=== PATIENT | female | born 1950 | race Caucasian/White ===

== ENCOUNTER 2021-09-21 19:04 | Inpatient (IN) | payer MEDICARE, OTHER ==
[~2021-09-21] VITALS: Ht 165.1 cm; Wt 68.0 kg
--- NOTE | 2021-09-21 19:11 | PHYS DOC ---
General Adult EDM: Chief Complaint: PSYCH EVALUATION HPI: HPI: Patient is a 71-year-old female that is brought in for medical clearance to go to the geriatric psychiatric facility here. She was brought in by one of the caregivers from her senior care facility. The patient has no complaints. She has a known history of psychosis. She has already been preauthorized to be admitted once medically cleared through the ED. No reported vomiting. No reported fever. No reported chest pain, cough, dyspnea. No reported abdominal pain. No reported injury, fall or traumas. Review of Systems: Review of Systems: As per HPI Physical Exam: PE: Constitutional: Well developed, well nourished, no acute distress, non-toxic appearance. [] HENT: Normocephalic, atraumatic, oropharynx is patent and clear. Mucous members are moist Eyes: Sclera anicteric, conjunctive are normal, PERRL, EOMI Neck: Normal range of motion, no tenderness, supple, no stridor. No meningismus. Cardiovascular:Heart rate regular rhythm, +2 radial and +2 PT pulses bilaterally. Lungs & Thorax: Bilateral breath sounds clear to auscultation, no R/R/W, no dis tress. Abdomen: Bowel sounds normal, soft, no tenderness, no masses, no pulsatile masses. No CVA tenderness. Skin: Warm, dry, no erythema, no rash. [] Back: No tenderness, no CVA tenderness. [] Extremities: No tenderness, no cyanosis, no clubbing, ROM intact, no edema. No calf tenderness. Neurologic: Alert and oriented X 3, normal motor function, normal sensory function, no focal deficits noted. [] Psychologic: Affect is somewhat bizarre, she is overall cooperative. She is not aggressive or hostile. She does not appear to be responding to internal stimuli. EKG: EKG: [] Radiology/Procedures: Radiology/Procedures: IMAGING REPORT Signed PATIENT: JACLYN HEDRICK ACCOUNT: [id number] : 1950 LOCATION: ER AGE: 71 SEX: F EXAM STATUS: REG ER ORD. PHYSICIAN: GERMAIN WOOTEN DO REASON: increased agitation PROCEDURE: CT HEAD WO CONTRAST Exam: CT head INDICATION: Increased agitation TECHNIQUE: Sequential axial images through the head were obtained without the administration of IV contrast. Exposure: One or more of the following in the visualized dose reduction techniques were utilized for this examination: 1. Automated exposure control 2. Adjustment of the MA and/or KV according to patient size 3. Use of iterative of reconstructive technique Comparisons: None FINDINGS: No focal parenchymal lesion or hemorrhage is identified. There is no midline shift or sulcal effacement. Mild patchy hypodensity in the periventricular white matter. No acute vascular territory infarction is identified. Hightower-white distinction is preserved. The ventricular system is within normal limits without compression hydrocephalus. The basal cisterns are well maintained. The visualized portions of the paranasal sinuses and mastoid air cells are well- pneumatized. No acute fractures. IMPRESSION: Mild small vessel ischemic change, technically age indeterminate without recent prior imaging. Electronically signed by: Kary Grey MD (09/21/2021 8:27 PM) [facility] DICTATED AND SIGNED BY: KARY GREY MD DATE: 09/21/212024 CC: GERMAIN WOOTEN DO; NAVI PALMER ~ Heart Score: C/O Chest Pain: No Risk Factors: Risk Factors: DM, Current or recent (<one month) smoker, HTN, HLP, family history of CAD, obesity. Risk Scores: Score 0 - 3: 2.5% MACE over next 6 weeks - Discharge Home Score 4 - 6: 20.3% MACE over next 6 weeks - Admit for Clinical Observation Score 7 - 10: 72.7% MACE over next 6 weeks - Early Invasive Strategies Course & Med Decision Making: Course & Med Decision Making Pertinent Labs and Imaging studies reviewed. (See chart for details) I discussed the findings, differential diagnosis and plan of care with the patient and her caregiver. She does have findings of a urinary tract infection. First dose of oral cephalexin is given here. The patient will be admitted to the geriatric psychiatric facility. Here. I spoke with Dr. Arthur and Dr. Urbina regarding the emergency department work-up, the patient appears stable for admission. They agree, the patient is admitted without incident. Dragon Disclaimer: Dragon Disclaimer: This electronic medical record was generated, in whole or in part, using a voice recognition dictation system. Departure Departure: Impression: Primary Impression: Psychosis Qualified Codes: F25.9 - Schizoaffective disorder, unspecified Additional Impression: Urinary tract infection Qualified Codes: N39.0 - Urinary tract infection, site not specified Disposition: 09 ADMITTED INPATIENT Admitting Physician: Other (Dr. Urbina, geriatric psych and Dr. Arthur) Condition: STABLE Referrals: NAVI PALMER (PCP) GERMAIN WOOTEN DO September 21, 2021 19:11
[2021-09-21 20:10] LABS: BASO % 0 % (0-3); EOS % 0 % (0-3); HEMATOCRIT 39.3 % (36.0-47.0); HEMOGLOBIN 12.6 g/dL (12.0-15.5); LYMPH # 2.8 x10^3/uL (1.0-4.8); LYMPH % 35 % (24-48); MEAN CORPUSCULAR HEMOGLOBIN 27 pg (25-35); MEAN CORPUSCULAR HGB CONC 32 g/dL (31-37); MEAN CORPUSCULAR VOLUME 86 fL (79-100); MONO # 0.7 x10^3/uL (0.0-1.1); MONO % 9 % (0-9); NEUT # 4.4 x10^3uL (1.8-7.7); NEUT % 56 % (31-73); PLATELET COUNT 166 x10^3/uL (140-400); RED BLOOD COUNT 4.58 x10^6/uL (3.50-5.40); RED CELL DISTRIBUTION WIDTH 16.8 % (11.5-14.5); WHITE BLOOD COUNT 7.9 x10^3/uL (4.0-11.0)
[2021-09-21 20:23] LABS: ACETAMIN < 2.0 mcg/mL (10-30); CALCIUM 9.2 mg/dL (8.5-10.1); CREATININE 0.9 mg/dL (0.6-1.0); GFR 62.1; POTASSIUM 4.1 mmol/L (3.5-5.1)
[2021-09-21 20:24] LABS: ETHANOL < 10 mg/dL (0-10); SALIC < 2.8 mg/dL (2.8-20.0)
[2021-09-21 20:29] LABS: ALBUMIN 3.1 g/dL (3.4-5.0); TOTAL BILIRUBIN 0.3 mg/dL (0.2-1.0); TOTAL PROTEIN 6.3 g/dL (6.4-8.2)
--- NOTE | 2021-09-21 20:30 | RAD ---
Exam: CT head INDICATION: Increased agitation TECHNIQUE: Sequential axial images through the head were obtained without the administration of IV co ntrast. Exposure: One or more of the following in the visualized dose reduction techniques were utilized for this examination: 1. Automated exposure control 2. Adjustment of the MA and/or KV according to patient size 3. Use of iterative of reconstructive technique Comparisons: None FINDINGS: No focal parenchymal lesion or hemorrhage is identified. There is no midline shift or sulcal effaceme nt. Mild patchy hypodensity in the periventricular white matter. No acute vascular territory infarction i s identified. Hightower-white distinction is preserved. The ventricular system is within normal limits without compression hydrocephalus. The basal cisterns are well maintained. The visualized portions of the paranasal sinuses and mastoid air cells are well-pneumatized. No acute fractures. IMPRESSION: Mild small vessel ischemic change, technically age indeterminate without recent prior imaging. Electronically signed by: Kary Lewis MD (09/21/2021 8:27 PM) [facility]
[2021-09-21 20:41] LABS: CLARITY,URINE CLEAR; COLOR,URINE YELLOW; GLUCOSE,URINE NEG (NEG); NITRITE,URINE NEG (NEG); UROBILINOGEN,URINE 0.2 mg/dL (0.2 mg/dL)
[2021-09-21 20:42] LABS: BACTERIA,URINE MANY /HPF (0-FEW); RBC,URINE 0 /HPF (0-2); SQUAMOUS EPITHELIAL CELL,UR FEW /LPF
[2021-09-21 20:44] LABS: BARBITURATES NEG (NEG); BENZODIAZEPINES NEG (NEG); CANNABINOIDS NEG (NEG); METHADONE NEG (NEG); OPIATES NEG (NEG); PHENCYCLIDINE NEG (NEG)
[2021-09-21 20:47] LABS: INFLUENZA A PATIENT NEGATIVE (NEGATIVE); INFLUENZA B PATIENT NEGATIVE (NEGATIVE)
[2021-09-21] MEDS ORDERED: TRAZ-125 PO (20:52)
[2021-09-21] MEDS ORDERED: NITR0.4T22 SL (20:52)
[2021-09-21] MEDS ORDERED: MELA3TAB4 PO (20:52)
[2021-09-21] MEDS ORDERED: MAG-115 PO (20:52)
[2021-09-21] MEDS ORDERED: OLAN10TA69 PO (20:52)
[2021-09-21] MEDS ORDERED: LORA0.5T21 PO (20:52)
[2021-09-21] MEDS ORDERED: SERT50TA PO (20:52)
[2021-09-21] MEDS ORDERED: SODI30SP NS (20:52)
[2021-09-21] MEDS ORDERED: GUAI600T47 PO (20:52)
[2021-09-21] MEDS ORDERED: QUET400T52 PO (20:52)
[2021-09-21] MEDS ORDERED: NYST15PO9 TP (20:52)
[2021-09-21] MEDS ORDERED: OMEP20CA16 PO (20:52)
[2021-09-21] MEDS ORDERED: ASPI-889 PO (20:52)
[2021-09-21] MEDS ORDERED: CLOZ100T7 PO ×2 (20:52)
[2021-09-21] MEDS ORDERED: ACET325T21 PO (20:52)
[2021-09-21] MEDS ORDERED: ALBU2.5V8 IH (20:52)
[2021-09-21] MEDS ORDERED: MAGN24003 PO (20:52)
[2021-09-21] MEDS ORDERED: ATOR20TA58 PO (20:52)
[2021-09-21] MEDS ORDERED: DOCU100C28 PO (20:52)
[2021-09-21] MEDS ORDERED: IBUP-571 PO (20:52)
[2021-09-21] MEDS ORDERED: POLY2500 PO (20:52)
[2021-09-21] MEDS ORDERED: OMEG1CAP50 PO (20:52)
[2021-09-21 21:04] LABS: COCAINE NEG (NEG)
[2021-09-21 21:07] LABS: AMPHETAMINE/METHAMPHETAMINE NEG (NEG)
[2021-09-21] MEDS ORDERED: METHYL SALICYLATE/MENTHOL TOPICAL OINTMENT 57GM TUBE. TP PRN (21:15)
[2021-09-21] MEDS ORDERED: MAG HYDROX/AL HYDROX/SIMETH 30 ML ORAL.SUSP PO PRN (21:15)
[2021-09-21] MEDS ORDERED: ACETAMINOPHEN 325 MG TABLET PO PRN (21:15)
[2021-09-21] MEDS ORDERED: CEPHALEXIN 250 MG CAPSULE PO ONE (21:30)
[2021-09-21 23:56] VITALS: BP 131/71
[2021-09-22] MEDS ORDERED: NYSTATIN TOPICAL POWDER 15GM BOTTLE. TP PRN (00:15)
[2021-09-22] MEDS ORDERED: NITROGLYCERIN SUBLINGUAL 0.4 MG BOTTLE OF 25. SL PRN (00:15)
[2021-09-22] MEDS ORDERED: IBUPROFEN 600 MG TABLET. PO PRN (00:15)
[2021-09-22] MEDS ORDERED: QUETIAPINE FUMARATE 400 MG PO SCH (00:15)
[2021-09-22] MEDS ORDERED: LORazepam 0.5 MG TABLET PO PRN (00:15)
[2021-09-22 06:04] VITALS: BP 138/84
[2021-09-22] MEDS: SODIUM CHLORIDE 0.65% NASAL SPRAY 45ML BOTTLE. NS SCH ×2 (09:00→21:25)
[2021-09-22] MEDS: POLYETHYLENE GLYCOL 3350 17 GM PACKET. PO SCH (09:00)
[2021-09-22] MEDS: ALBUTEROL SULFATE 8GM INHALER. INH SCH ×2 (09:00→21:26)
[2021-09-22] MEDS: ASPIRIN ENTERIC COATED 81 MG TABLET.DR. PO SCH (09:06)
[2021-09-22] MEDS: CEPHALEXIN 250 MG CAPSULE PO SCH ×2 (09:06→21:23)
[2021-09-22] MEDS: DOCUSATE SODIUM 100 MG CAPSULE PO SCH (09:06)
[2021-09-22] MEDS: PANTOPRAZOLE 40 MG TABLET. PO SCH (09:06)
[2021-09-22] MEDS: OMEGA-3 FATTY ACIDS/FISH OIL 1,000 MG CAPSULE. PO SCH ×2 (09:07→21:23)
[2021-09-22] MEDS: cloZAPine 100 MG TABLET PO SCH ×2 (12:20→21:25)
[2021-09-22 15:00] VITALS: BP 93/51
--- NOTE | 2021-09-22 18:57 | EKG ---
[address] [address] Test Date: 2021-09-22 Test Time: 06:43:40 Pat Name: JACLYN HEDRICK Department: Room: [address] [place] [address] Gender: F Trimmer Meat: : 1950 Requested By: KAYLEE CAMEJO Order Number: [id number] Reading MD: Nghia Salas MD Measurements Intervals [place] Rate: 89 P: 19 ND: 316 QRS: 64 QRSD: 84 T: 42 QT: 344 QTc: 420 Interpretive Statements SINUS RHYTHM PROLONGED ND INTERVAL ANTEROSEPTAL INFARCT Electronically Signed On 09-25-2021 9:02:24 CDT by Nghia Salas MD
[2021-09-22 19:36] LABS: CHOLESTEROL/HDL RATIO 2.8
[2021-09-22 19:37] LABS: THYROID STIM HORMONE (TSH) 2.038 uIU/mL (0.358-3.740)
[2021-09-22 20:19] LABS: THYROXINE 4.7 ug/dL (4.5-12.0)
[2021-09-22] MEDS: traZODone 100 MG TABLET. PO SCH (21:23)
[2021-09-22] MEDS: ATORVASTATIN CALCIUM 20 MG TABLET PO SCH (21:23)
[2021-09-22] MEDS: SERTRALINE 50 MG TABLET. PO SCH (21:24)
[2021-09-22] MEDS: MELATONIN 3 MG TABLET PO SCH (21:24)
--- NOTE | 2021-09-22 21:47 | PDOC ---
Exam Note: Toni Note: Please also refer to the separate dictated note~for this date of service dictated separately.~Patient seen individually. Discussed the patient with Nursing staff reviewed the chart.~Reviewed interim history and current functioning. Reviewed vital signs,~Labs/ Radiology~and current medications noted below. Continue current treatment with the changes noted in the dictated addendum note Assessment: Vital Signs/I&O: Vital Signs Date Time Temp Pulse Resp B/P (MAP) Pulse Ox O2 Delivery O2 Flow Rate FiO2 09/22/21 06:04 98.5 71 18 138/84 (102) 95 Room Air I & O 09/21/21 09/21/21 09/22/21 15:00 23:00 07:00 Intake Total 480 ml Balance 480 ml Labs: Laboratory Tests Test 09/22/21 06:28 Iron Level 43 ug/dL (50-170) L Total Iron Binding Capacity 183 ug/dL (250-450) L Iron Saturation 23 % (15-34) Triglycerides Level 96 mg/dL (0-150) Cholesterol Level 121 mg/dL (0-200) LDL Cholesterol, Calculated 59 mg/dL (0-100) VLDL Cholesterol, Calculated 19 mg/dL (0-40) Non-HDL Cholesterol Calculated 78 mg/dL (0-129) HDL Cholesterol 43 mg/dL (40-60) Cholesterol/HDL Ratio 2.8 25-Hydroxy Vitamin D Total 17.7 ng/mL (30-100) L Thyroid Stimulating Hormone (TSH) 2.038 uIU/mL (0.358-3.740) Thyroxine (T4) 4.7 ug/dL (4.5-12.0) Total Triiodothyronine (TT3) 75 ng/dL (71-180) Treponema pallidum Antibody Nonreactive (Nonreactive) Current Medications: Meds: Current Medications Medications (Trade) Dose Ordered Sig/Vania Route PRN Reason Start Time Stop Time Status Last Admin Dose Admin Cephalexin HCl (Keflex) 500 mg BID PO 09/22/21 09:00 09/22/21 21:23 Aspirin (Aspirin Enteric Coated) 81 mg DAILY PO 09/22/21 09:00 09/22/21 09:06 Atorvastatin Calcium (Lipitor) 20 mg QHS PO 09/22/21 21:00 09/22/21 21:23 Docusate Sodium (Colace) 100 mg DAILY PO 09/22/21 09:00 09/22/21 09:06 Fish Oil (Fish Oil) 2,000 mg BID PO 09/22/21 09:00 09/22/21 21:23 Sodium Chloride (Saline Mist Nasal) 1 camacho BID NS 09/22/21 09:00 09/22/21 21:25 Pantoprazole Sodium (Protonix) 40 mg DAILYAC PO 09/22/21 07:30 09/22/21 09:06 Polyethylene Glycol (miraLAX) 17 gm QODAY PO 09/22/21 09:00 09/22/21 09:00 Albuterol Sulfate (Ventolin Hfa Inhaler) 2 puff BID INH 09/22/21 09:00 09/22/21 21:26 Clozapine (Clozaril) 100 mg NOON PO 09/22/21 12:00 09/22/21 12:20 Clozapine (Clozaril) 400 mg HS PO 09/22/21 21:00 09/22/21 21:25 Melatonin (Melatonin) 6 mg QHS PO 09/22/21 21:00 09/22/21 21:24 Sertraline HCl (Zoloft) 75 mg HS PO 09/22/21 21:00 09/22/21 21:24 Trazodone HCl (Desyrel) 200 mg HS PO 09/22/21 21:00 09/22/21 21:23 I have reviewed the current psychotropics carefully including drug interactions. Risk benefit ratio favors no change other than as noted in my dictated progress note. KAYLEE CAMEJO MD September 22, 2021 21:47
[2021-09-23 02:21] LABS: HEMOGLOBIN A1C 6.3 % (4.8-5.6)
[2021-09-23 06:26] VITALS: BP 110/72
[2021-09-23] MEDS: DOCUSATE SODIUM 100 MG CAPSULE PO SCH (08:00)
[2021-09-23] MEDS: OMEGA-3 FATTY ACIDS/FISH OIL 1,000 MG CAPSULE. PO SCH ×2 (08:00→21:11)
[2021-09-23] MEDS: CEPHALEXIN 250 MG CAPSULE PO SCH ×2 (08:00→21:11)
[2021-09-23] MEDS: ASPIRIN ENTERIC COATED 81 MG TABLET.DR. PO SCH (08:00)
[2021-09-23] MEDS: SODIUM CHLORIDE 0.65% NASAL SPRAY 45ML BOTTLE. NS SCH ×2 (08:02→21:10)
[2021-09-23] MEDS: ALBUTEROL SULFATE 8GM INHALER. INH SCH ×2 (08:02→21:00)
[2021-09-23] MEDS: PANTOPRAZOLE 40 MG TABLET. PO SCH (08:02)
--- NOTE | 2021-09-23 10:13 | HP ---
DATE OF SERVICE: 09/23/2021 ADMIT DATE: 09/21/2021 PSYCHIATRIC ADMISSION HISTORY/EVALUATION This is a late entry, date of service, 09/22/2021, covers the elements not covered in my initial note 09/22/2021. I met with the patient on the evening of 09/22/2021. Previously discussed with the ER physician late night of 09/21/2021 after the patient presented to the ER for medical clearance before admission to [facility]. She was found to have a UTI, started on Keflex by ER physician. The patient was also staffed at treatment team meeting with the entire team in the morning of 09/22/2021 with NELY Bowling, Fran, District Wire Chief, Josy Dillon, District Wire Chief, Katy, activity therapy. Reviewed history, diagnosis of schizoaffective disorder. She continues to yell and scream, putting herself on the floor repeatedly, compliant with medications. She talked about wanting to hurt herself by walking in front of a car and states she gets angry, aggressive and wants to hit out at people. Also, met with the patient at great length in the evening of 09/22/2021. IDENTIFYING DATA: The patient is a 71-year-old female referred to us from [facility] by Dr. Silver Grande, her primary care physician on account of an acute exacerbation of her schizoaffective disorder, bipolar type with acute exacerbation. Reportedly, at the senior care, she was "pole dancing in the lobby." She was putting herself on the floor, screaming, thinking she was in a field with 2 people. She voiced suicidal ideation with a plan to walk in front of a car as noted above. She was striking out at staff, anxious. She had failed outpatient psychiatric interventions. Behaviors disruptive, unmanageable at the facility resulting in this referral. CHIEF COMPLAINT: "Yes, I have bipolar disorder. No, I was not pole dancing." HISTORY OF PRESENT ILLNESS: Reportedly, the patient has a long history of schizoaffective disorder, bipolar type. She has been at the [facility] for some time, recently getting increasingly psychotic, paranoid, manic, marked sleep and appetite disturbance, aggression, disruptive behaviors. No active homicidal ideation other than what is noted above when she does have the suicidal ideation, but denies active suicidal ideation and I met with her the evening of 09/22/2021. PAST PSYCHIATRIC HISTORY: As above. MEDICAL HISTORY: Positive for early vascular dementia, hyperlipidemia, type 1 diabetes mellitus, cataracts, history of alcoholism. Accu-Cheks b.i.d. CODE STATUS: Full code. ALLERGIES: FLUPHENAZINE, LITHIUM, RISPERDAL. THIORIDAZINE, HALDOL, TEGRETOL AND THIOTHIXENE. DIET: Dysphagia 3 chopped foods. Takes medications whole. Accu-Cheks b.i.d. Ambulates ad naz. UA is positive in the ER, started on Keflex as noted. CURRENT PSYCHOTROPICS: Zyprexa 10 mg b.i.d. p.r.n.; clozapine 100 mg at noon, 400 mg at bedtime; Ativan 0.5 mg b.i.d. p.r.n.; melatonin 3 mg 1-2 at bedtime; Seroquel 400 mg at 1800; Zoloft 75 mg a day; trazodone 200 mg at bedtime. FAMILY HISTORY: Noncontributory. SOCIAL HISTORY: Positive for alcohol abuse. No physical, sexual, or elder abuse history is noted. She is not known to be a perpetrator. Reaction to hospitalization, the patient accepting of it. REVIEW OF SYSTEMS: Ambulation impaired. No CV, , pulmonary, eye system symptoms on review. MENTAL STATUS EXAM: The patient seen individually on evening of 09/22/2021. She is oriented to herself, situation. Speech is coherent and she was intermittently yelling out even during the time I was visiting with her, this apparently was for no reason and she would quit a few seconds later. Abstraction fair. Computation impaired. Language function intact. Attention span short. Mood and affect labile. She remains paranoid, but no active suicidal or homicidal ideation. LABORATORY DATA: Reviewed. IMPRESSION: Schizoaffective disorder, bipolar type, mixed, with acute exacerbation and psychotic features; anxiety disorder, unspecified; impulse control disorder, unspecified; cognitive disorder, unspecified; urinary tract infection. Rest as above. PLAN: Admit to Geropsychiatry unit at [facility]. I will see the patient daily individually from a psychiatric standpoint, Medical followup, Dr. Arthur/Dr. Garcia. Continue current psychotropics. Follow CBC and absolute neutrophil count weekly. Since she is on the Clozaril, consider adding Depakote as a mood stabilizer since SHE IS ALLERGIC TO LITHIUM. Consider increasing clozapine depending on her progress. We will make further adjustments as clinically indicated. ESTIMATED LENGTH OF STAY: 10-12 days. DISPOSITION PLANS: Back to senior care when stable. MAX/ALEJANDRO DR: Arabella TID: [id number]
[2021-09-23] MEDS: cloZAPine 100 MG TABLET PO SCH ×2 (12:00→21:11)
--- NOTE | 2021-09-23 13:07 | CONS ---
DATE OF CONSULTATION: 09/22/2021 REASON FOR CONSULTATION: Medical management. HISTORY OF PRESENT ILLNESS: The patient is a 71-year-old female patient, a resident at [facility] who was admitted to [facility] on account of poll dancing in the lobby, putting self on the floor, screaming, thinks she is in a field with 2 people. She has suicidal ideation without a plan, striking out at staff, anxious, confused, apparently she does have a plan to get in front of a car and also would like to hit other people according to nursing staff, all this in a background of schizoaffective disorder, bipolar type with acute exacerbation. PAST MEDICAL HISTORY: Medically, the patient has multiple medical problems including hyperlipidemia, type 2 diabetes mellitus and history of alcoholism. PSYCHIATRIC HISTORY: Includes vascular dementia, schizoaffective disorder, bipolar disorder. PAST SURGICAL HISTORY: Unobtainable. ALLERGIES: SHE IS ALLERGIC TO CARBAMAZEPINE, FLUPHENAZINE, HALOPERIDOL, LITHIUM, RISPERIDONE. THIORIDAZINE, AND THIOTHIXENE. MEDICATIONS: She is currently on the following medications: She is on trazodone 200 mg at bedtime, sertraline 75 mg at bedtime, melatonin 6 mg at bedtime, clozapine 400 mg at bedtime, atorvastatin 20 mg at bedtime. She is on clozapine 100 mg at noon, albuterol sulfate 2 puffs twice a day, polyethylene glycol 17 grams every other day, sodium chloride for saline nasal spray 1 spray to both nostrils twice a day, fish oil 2000 mg twice a day, Colace 100 mg daily, aspirin 81 mg once a day, cephalexin 500 mg twice a day, Protonix 40 mg daily. She is on lorazepam 0.5 mg twice a day as needed, nystatin powder applied topically twice a day, ibuprofen 600 mg every 8 hours and Mucinex 600 mg twice a day, olanzapine 5 mg every 2 hours and acetaminophen 650 mg p.o. every 6 hours. FAMILY HISTORY: Noncontributory. SOCIAL HISTORY: She is a resident at [facility], no further information is available. PHYSICAL EXAMINATION: GENERAL: When I examined her, she was resting slightly propped up in bed, in no apparent respiratory distress. There was no pallor, jaundice, cyanosis. No lymphadenopathy, no thyromegaly, no jugular venous distention. No limb edema. VITAL SIGNS: Her heart rate was 71, blood pressure is 138/84, temperature 98.5, respiratory rate was 18 and oxygen saturation was 95% on room air. HEAD, EYES, EARS, NOSE, AND THROAT: Normocephalic, atraumatic. NECK: Supple. HEART: Showed normal first and second heart sounds. No gallop, rub or murmur. CHEST: Clear to auscultation. No crepitation or rhonchi. ABDOMEN: Distended, soft, nontender. NEUROLOGIC: She is awake, alert, responds appropriately at times; and other times, she just moans and groans. All her cranial nerves seem to be grossly intact. She moves right upper extremities to a much good extent than lower extremities. She is mostly bedbound. According to the nursing staff, the patient is able to get out of the bed and brought herself on the floor and take herself off the floor. She was seen by the physical therapist today, but she was mostly moaning and groaning, so they could not really assess her appropriately. LABORATORY WORK: Showed a white cell count of 7.9, hemoglobin 13, hematocrit 39, MCV 86 and platelet count of 166,000. Her chemistry showed a serum sodium 145, potassium 4.1, chloride 109, bicarbonate 26, anion gap of 10, BUN 12, creatinine 0.9. Estimated GFR was 62 mL per minute. Glucose 103, calcium was 9.2, magnesium 2. Total bilirubin, AST, ALT, alkaline phosphatase were normal. Ammonia was 12, total protein was 6.3, albumin 3.1. Her urinalysis essentially unremarkable. Toxic screen was negative and her influenza A and B as well as coronavirus by rapid antigen testing was negative. ASSESSMENT: In summary, this is a 71-year-old female patient, a resident at [facility] in [place], who was admitted to [facility] on account of poll dancing in the lobby, putting self on the floor, screaming, thinks that she is in a field with 2 people. She has suicidal ideation without a plan, striking out at staff, anxious, confused, all this in a background of schizoaffective disorder, bipolar type with acute exacerbation. Medically, she has hyperlipidemia, type 2 diabetes mellitus, gastroesophageal reflux disease, UTI, for which she is on Keflex, although the culture and sensitivity is still pending at the time of this dictation. PLAN: My plan is obviously to continue with all her current medications. I will follow her labs that are still pending at the time of this dictation and make any necessary recommendation. Thank you, Dr. Urbina, for allowing me to participate in the care of this patient. ROBBIE/ERON DR: TAMI/duncan TID: [id number]
[2021-09-23 15:00] VITALS: BP 112/76
[2021-09-23] MEDS: DIVALPROEX ER 500 MG TAB.ER.24H PO SCH (21:10)
[2021-09-23] MEDS: ATORVASTATIN CALCIUM 20 MG TABLET PO SCH (21:10)
[2021-09-23] MEDS: SERTRALINE 50 MG TABLET. PO SCH (21:10)
[2021-09-23] MEDS: traZODone 100 MG TABLET. PO SCH (21:11)
[2021-09-23] MEDS: MELATONIN 3 MG TABLET PO SCH (21:11)
[2021-09-24] MEDS: MAGNESIUM HYDROXIDE 2,400 MG/30 ML ORAL.SUSP. PO PRN ×2 (05:35→08:10)
[2021-09-24 06:11] VITALS: BP 105/67
[2021-09-24] MEDS: CEPHALEXIN 250 MG CAPSULE PO SCH ×2 (08:08→20:31)
[2021-09-24] MEDS: DOCUSATE SODIUM 100 MG CAPSULE PO SCH (08:08)
[2021-09-24] MEDS: ASPIRIN ENTERIC COATED 81 MG TABLET.DR. PO SCH (08:09)
[2021-09-24] MEDS: OMEGA-3 FATTY ACIDS/FISH OIL 1,000 MG CAPSULE. PO SCH ×2 (08:09→20:31)
[2021-09-24] MEDS: POLYETHYLENE GLYCOL 3350 17 GM PACKET. PO SCH (08:09)
[2021-09-24] MEDS: PANTOPRAZOLE 40 MG TABLET. PO SCH (08:09)
[2021-09-24] MEDS: ALBUTEROL SULFATE 8GM INHALER. INH SCH ×2 (08:09→20:28)
[2021-09-24] MEDS: SODIUM CHLORIDE 0.65% NASAL SPRAY 45ML BOTTLE. NS SCH ×2 (08:09→20:28)
[2021-09-24] MEDS: CHOLECALCIFEROL (VITAMIN D3) 50,000 UNIT CAPSULE PO SCH (11:45)
[2021-09-24] MEDS: cloZAPine 100 MG TABLET PO SCH ×2 (12:00→20:32)
[2021-09-24 16:06] VITALS: BP 104/72
[2021-09-24] MEDS: traZODone 100 MG TABLET. PO SCH (20:29)
[2021-09-24] MEDS: DIVALPROEX ER 500 MG TAB.ER.24H PO SCH (20:30)
[2021-09-24] MEDS: FERROUS SULFATE 325 MG TABLET. PO SCH (20:30)
[2021-09-24] MEDS: ATORVASTATIN CALCIUM 20 MG TABLET PO SCH (20:31)
[2021-09-24] MEDS: SERTRALINE 50 MG TABLET. PO SCH (20:32)
[2021-09-24] MEDS: MELATONIN 3 MG TABLET PO SCH (20:32)
[2021-09-24] MEDS: ASCORBIC ACID 500 MG TABLET PO SCH (20:32)
--- NOTE | 2021-09-24 22:00 | PDOC ---
Exam Note: Toni Note: Please also refer to the separate dictated note~for this date of service dictated separately.~Patient seen individually. Discussed the patient with Nursing staff reviewed the chart.~Reviewed interim history and current functioning. Reviewed vital signs,~Labs/ Radiology~and current medications noted below. Continue current treatment with the changes noted in the dictated addendum note Assessment: Vital Signs/I&O: Vital Signs Date Time Temp Pulse Resp B/P (MAP) Pulse Ox O2 Delivery O2 Flow Rate FiO2 09/24/21 16:06 97.6 90 18 104/72 (83) 97 Room Air I & O 09/23/21 09/23/21 09/24/21 15:00 23:00 07:00 Intake Total 360 ml 240 ml Balance 360 ml 240 ml Current Medications: Meds: Current Medications Medications (Trade) Dose Ordered Sig/Vania Route PRN Reason Start Time Stop Time Status Last Admin Dose Admin Cephalexin HCl (Keflex) 500 mg 1X ONCE PO 09/21/21 21:30 09/21/21 21:31 DC 09/21/21 21:10 Acetaminophen (Tylenol) 650 mg PRN Q6HRS PRN PO MILD PAIN / TEMP > 100.3'F 09/21/21 21:15 Multi-Ingredient Ointment (Analgesic [place]) 1 camacho PRN QID PRN TP MUSCLE PAIN 09/21/21 21:15 Al Hydroxide/Mg Hydroxide (Mylanta Plus Xs) 15 ml PRN AFTMEALHC PRN PO DYSPEPSIA 09/21/21 21:15 Magnesium Hydroxide (Milk Of Magnesia) 2,400 mg PRN QHS PRN PO CONSTIPATION 09/21/21 21:15 09/24/21 08:10 Cephalexin HCl (Keflex) 500 mg BID PO 09/22/21 09:00 09/24/21 20:31 Olanzapine (ZyPREXA ZYDIS) 5 mg PRN Q2HRS PRN PO PSYCHOSIS 09/22/21 00:00 Aspirin (Aspirin Enteric Coated) 81 mg DAILY PO 09/22/21 09:00 09/24/21 08:09 Atorvastatin Calcium (Lipitor) 20 mg QHS PO 09/22/21 21:00 09/24/21 20:31 Docusate Sodium (Colace) 100 mg DAILY PO 09/22/21 09:00 09/24/21 08:08 Guaifenesin (Mucinex Er) 600 mg PRN DAILY PRN PO Congestion/Mucus 09/22/21 00:15 Ibuprofen (Motrin) 600 mg PRN Q8HRS PRN PO Back Pain 09/22/21 00:15 Nitroglycerin (Nitrostat) 0.4 mg PRN Q5MIN PRN SL CHEST PAIN 09/22/21 00:15 Nystatin (Nystop) 1 camacho PRN BID PRN TP RASH 09/22/21 00:15 Fish Oil (Fish Oil) 2,000 mg BID PO 09/22/21 09:00 09/24/21 20:31 Sodium Chloride (Saline Mist Nasal) 1 camacho BID NS 09/22/21 09:00 09/24/21 20:28 Pantoprazole Sodium (Protonix) 40 mg DAILYAC PO 09/22/21 07:30 09/24/21 08:09 Polyethylene Glycol (miraLAX) 17 gm QODAY PO 09/22/21 09:00 09/24/21 08:09 Albuterol Sulfate (Ventolin Hfa Inhaler) 2 puff BID INH 09/22/21 09:00 09/24/21 20:28 Clozapine (Clozaril) 100 mg NOON PO 09/22/21 12:00 09/24/21 12:00 Clozapine (Clozaril) 400 mg HS PO 09/22/21 21:00 09/24/21 20:32 Lorazepam (Ativan) 0.5 mg PRN BID PRN PO ANXIETY 09/22/21 00:15 Melatonin (Melatonin) 6 mg QHS PO 09/22/21 21:00 09/24/21 20:32 Sertraline HCl (Zoloft) 75 mg HS PO 09/22/21 21:00 09/24/21 20:32 Trazodone HCl (Desyrel) 200 mg HS PO 09/22/21 21:00 09/24/21 20:29 Non-Formulary Medication (Quetiapine Fumarate (Quetiapine Fumarate ER)) 400 mg Daily at 1800 PO 09/22/21 00:15 UNV Divalproex Sodium (Depakote Er) 500 mg HS PO 09/23/21 21:00 09/24/21 20:30 Vitamin D (Vitamin D3) 50,000 unit WEEKLY PO 09/24/21 11:45 09/24/21 11:45 Ferrous Sulfate (Feosol) 325 mg BID PO 09/24/21 21:00 09/24/21 20:30 Ascorbic Acid (Vitamin C) 500 mg BID PO 09/24/21 21:00 09/24/21 20:32 Current Medications Medications (Trade) Dose Ordered Sig/Vania Route PRN Reason Start Time Stop Time Status Last Admin Dose Admin Vitamin D (Vitamin D3) 50,000 unit WEEKLY PO 09/24/21 11:45 09/24/21 11:45 Ferrous Sulfate (Feosol) 325 mg BID PO 09/24/21 21:00 09/24/21 20:30 Ascorbic Acid (Vitamin C) 500 mg BID PO 09/24/21 21:00 09/24/21 20:32 I have reviewed the current psychotropics carefully including drug interactions. Risk benefit ratio favors no change other than as noted in my dictated progress note. Diagnosis: Problems: (1) Schizoaffective disorder, bipolar type (2) Schizoaffective disorder, chronic condition with acute exacerbation (3) Bipolar disorder, current episode mixed, severe, with psychotic features (4) Anxiety disorder, unspecified (5) Impulse control disorder, unspecified (6) Urinary tract infection KAYLEE CAMEJO MD September 24, 2021 22:00
[2021-09-25 06:07] VITALS: BP 107/70
[2021-09-25] MEDS ORDERED: NYSTATIN TOPICAL POWDER 15GM BOTTLE. TP PRN (06:15)
[2021-09-25 07:20] LABS: BASO % 0 % (0-3); EOS % 0 % (0-3); HEMATOCRIT 38.6 % (36.0-47.0); HEMOGLOBIN 12.4 g/dL (12.0-15.5); LYMPH # 2.9 x10^3/uL (1.0-4.8); LYMPH % 38 % (24-48); MEAN CORPUSCULAR HEMOGLOBIN 28 pg (25-35); MEAN CORPUSCULAR HGB CONC 32 g/dL (31-37); MEAN CORPUSCULAR VOLUME 86 fL (79-100); MONO # 0.6 x10^3/uL (0.0-1.1); MONO % 8 % (0-9); NEUT # 4.1 x10^3uL (1.8-7.7); NEUT % 53 % (31-73); PLATELET COUNT 168 x10^3/uL (140-400); RED BLOOD COUNT 4.52 x10^6/uL (3.50-5.40); RED CELL DISTRIBUTION WIDTH 16.2 % (11.5-14.5); WHITE BLOOD COUNT 7.6 x10^3/uL (4.0-11.0)
[2021-09-25] MEDS: SODIUM CHLORIDE 0.65% NASAL SPRAY 45ML BOTTLE. NS SCH ×2 (08:11→20:49)
[2021-09-25] MEDS: ALBUTEROL SULFATE 8GM INHALER. INH SCH ×2 (08:11→20:49)
[2021-09-25] MEDS: CEPHALEXIN 250 MG CAPSULE PO SCH ×2 (08:11→20:50)
[2021-09-25] MEDS: PANTOPRAZOLE 40 MG TABLET. PO SCH (08:12)
[2021-09-25] MEDS: ASCORBIC ACID 500 MG TABLET PO SCH ×2 (08:12→20:50)
[2021-09-25] MEDS: DOCUSATE SODIUM 100 MG CAPSULE PO SCH (08:12)
[2021-09-25] MEDS: OMEGA-3 FATTY ACIDS/FISH OIL 1,000 MG CAPSULE. PO SCH ×2 (08:12→20:50)
[2021-09-25] MEDS: FERROUS SULFATE 325 MG TABLET. PO SCH ×2 (08:12→20:50)
[2021-09-25] MEDS: ASPIRIN ENTERIC COATED 81 MG TABLET.DR. PO SCH (08:12)
--- NOTE | 2021-09-25 08:38 | PDOC ---
Exam Note: Toni Note: This note is a late entry for 09/23/2021 covers elements not covered in my initial note. Subjective: The patient was seen individually on 09/23/2021, discussed and reviewed the chart with Lovely MCKAY. The patient slept 4-1/2 hours previous night. She has been putting herself on the floor a lot, making noises with her mouth and oriented to name and date of . After a careful review of her extensive history, it reveals diagnosis of schizoaffective disorder, bipolar type. She is on no mood stabilizers specifically for this and we will start Depakote ER 500 mg h.s. Check CBC, CMP, valproic acid level in 3 days to reach therapeutic level. Review of Systems: Ambulation impaired, in wheelchair. No CV, , pulmonary, eye, ENT system symptoms on review. Mental Status Exam: Patient is oriented to herself and situation. Speech has some latency, coherent. Abstraction fair. Computation impaired. Language function intact. She is paranoid. No active suicidal or homicidal ideation. Laboratory Data: Reviewed. Impression: Schizoaffective disorder bipolar type, mixed with acute exacerbation. Anxiety disorder unspecified. Impulse control disorder unspecified. Plan: Continue current psychotropics. Start the Depakote as noted and then consider increasing Clozapine and tapering off the Seroquel. Reviewed drug interactions and risk-benefit ratio. Assessment: Vital Signs/I&O: Vital Signs Date Time Temp Pulse Resp B/P (MAP) Pulse Ox O2 Delivery O2 Flow Rate FiO2 09/25/21 06:07 97.9 96 20 107/70 (82) 90 Room Air I & O 09/24/21 09/24/21 09/25/21 15:00 23:00 07:00 Intake Total 240 ml 240 ml Balance 240 ml 240 ml Labs: Laboratory Tests Test 09/25/21 06:57 White Blood Count 7.6 x10^3/uL (4.0-11.0) Red Blood Count 4.52 x10^6/uL (3.50-5.40) Hemoglobin 12.4 g/dL (12.0-15.5) Hematocrit 38.6 % (36.0-47.0) Mean Corpuscular Volume 86 fL (79-100) Mean Corpuscular Hemoglobin 28 pg (25-35) Mean Corpuscular Hemoglobin Concent 32 g/dL (31-37) Red Cell Distribution Width 16.2 % (11.5-14.5) H Platelet Count 168 x10^3/uL (140-400) Neutrophils (%) (Auto) 53 % (31-73) Lymphocytes (%) (Auto) 38 % (24-48) Monocytes (%) (Auto) 8 % (0-9) Eosinophils (%) (Auto) 0 % (0-3) Basophils (%) (Auto) 0 % (0-3) Neutrophils # (Auto) 4.1 x10^3uL (1.8-7.7) Lymphocytes # (Auto) 2.9 x10^3/uL (1.0-4.8) Monocytes # (Auto) 0.6 x10^3/uL (0.0-1.1) Eosinophils # (Auto) 0.0 x10^3/uL (0.0-0.7) Basophils # (Auto) 0.0 x10^3/uL (0.0-0.2) Current Medications: Meds: Current Medications Medications (Trade) Dose Ordered Sig/Vania Route PRN Reason Start Time Stop Time Status Last Admin Dose Admin Vitamin D (Vitamin D3) 50,000 unit WEEKLY PO 09/24/21 11:45 09/24/21 11:45 Ferrous Sulfate (Feosol) 325 mg BID PO 09/24/21 21:00 09/25/21 08:12 Ascorbic Acid (Vitamin C) 500 mg BID PO 09/24/21 21:00 09/25/21 08:12 I have reviewed the current psychotropics carefully including drug interactions. Risk benefit ratio favors no change other than as noted in my dictated progress note. Diagnosis: Problems: (1) Schizoaffective disorder, bipolar type (2) Impulse control disorder, unspecified (3) Schizoaffective disorder, chronic condition with acute exacerbation (4) Anxiety disorder, unspecified (5) Bipolar disorder, current episode mixed, severe, with psychotic features KAYLEE CAMEJO MD September 25, 2021 08:38
--- NOTE | 2021-09-25 09:06 | PDOC ---
Exam Note: Toni Note: This note is a late entry for 09/24/2021 covers elements not covered in my initial note. Subjective: The patient was seen individually on 09/24/2021, discussed and reviewed the chart with Harris MCKAY. The patient slept 5-1/2 hours previous night. She has been mourning and groaning intermittently for no real reason per nursing report. She takes her medications, laying herself on the floor, states she does not feel well, distended stomach and she is a weight. There is a possibility of constipation, will use mag citrate p.r.n. Review of Systems: Ambulation impaired, in wheelchair. No CV, , pulmonary, eye, ENT system symptoms on review. Mental Status Exam: Patient is oriented to herself and situation. Speech has some latency, coherent. Abstraction fair. Computation impaired. Language function intact. No active suicidal or homicidal ideation. Laboratory Data: Reviewed. Impression: Schizoaffective disorder bipolar type, mixed with acute exacerbation. Anxiety disorder unspecified. Impulse control disorder unspecified. Plan: Continue current psychotropics. Reviewed drug interactions and risk- benefit ratio. Assessment: Vital Signs/I&O: Vital Signs Date Time Temp Pulse Resp B/P (MAP) Pulse Ox O2 Delivery O2 Flow Rate FiO2 09/25/21 06:07 97.9 96 20 107/70 (82) 90 Room Air I & O 09/24/21 09/24/21 09/25/21 14:59 22:59 06:59 Intake Total 240 ml 240 ml Balance 240 ml 240 ml Labs: Laboratory Tests Test 09/25/21 06:57 White Blood Count 7.6 x10^3/uL (4.0-11.0) Red Blood Count 4.52 x10^6/uL (3.50-5.40) Hemoglobin 12.4 g/dL (12.0-15.5) Hematocrit 38.6 % (36.0-47.0) Mean Corpuscular Volume 86 fL (79-100) Mean Corpuscular Hemoglobin 28 pg (25-35) Mean Corpuscular Hemoglobin Concent 32 g/dL (31-37) Red Cell Distribution Width 16.2 % (11.5-14.5) H Platelet Count 168 x10^3/uL (140-400) Neutrophils (%) (Auto) 53 % (31-73) Lymphocytes (%) (Auto) 38 % (24-48) Monocytes (%) (Auto) 8 % (0-9) Eosinophils (%) (Auto) 0 % (0-3) Basophils (%) (Auto) 0 % (0-3) Neutrophils # (Auto) 4.1 x10^3uL (1.8-7.7) Lymphocytes # (Auto) 2.9 x10^3/uL (1.0-4.8) Monocytes # (Auto) 0.6 x10^3/uL (0.0-1.1) Eosinophils # (Auto) 0.0 x10^3/uL (0.0-0.7) Basophils # (Auto) 0.0 x10^3/uL (0.0-0.2) Current Medications: Meds: Current Medications Medications (Trade) Dose Ordered Sig/Vania Route PRN Reason Start Time Stop Time Status Last Admin Dose Admin Vitamin D (Vitamin D3) 50,000 unit WEEKLY PO 09/24/21 11:45 09/24/21 11:45 Ferrous Sulfate (Feosol) 325 mg BID PO 09/24/21 21:00 09/25/21 08:12 Ascorbic Acid (Vitamin C) 500 mg BID PO 09/24/21 21:00 09/25/21 08:12 I have reviewed the current psychotropics carefully including drug interactions. Risk benefit ratio favors no change other than as noted in my dictated progress note. Diagnosis: Problems: (1) Schizoaffective disorder, bipolar type (2) Impulse control disorder, unspecified (3) Schizoaffective disorder, chronic condition with acute exacerbation (4) Anxiety disorder, unspecified (5) Bipolar disorder, current episode mixed, severe, with psychotic features KAYLEE CAMEJO MD September 25, 2021 09:06
[2021-09-25] MEDS: cloZAPine 100 MG TABLET PO SCH ×2 (12:00→20:50)
[2021-09-25] MEDS ORDERED: MAGNESIUM CITRATE 296 ML SOLUTION. PO PRN (15:45)
[2021-09-25 16:13] VITALS: BP 105/70
[2021-09-25] MEDS: DIVALPROEX ER 500 MG TAB.ER.24H PO SCH (20:50)
[2021-09-25] MEDS: MELATONIN 3 MG TABLET PO SCH (20:50)
[2021-09-25] MEDS: LACTOBACILLUS RHAMNOSUS GG 1 CAPSULE. PO SCH (20:50)
[2021-09-25] MEDS: traZODone 100 MG TABLET. PO SCH (20:50)
[2021-09-25] MEDS: ATORVASTATIN CALCIUM 20 MG TABLET PO SCH (20:50)
[2021-09-25] MEDS: SERTRALINE 50 MG TABLET. PO SCH (20:51)
[2021-09-25] MEDS ORDERED: CEFDINIR 300 MG CAPSULE PO SCH (21:00)
--- NOTE | 2021-09-25 21:33 | PDOC ---
Exam Note: Toni Note: Please also refer to the separate dictated note~for this date of service dictated separately.~Patient seen individually. Discussed the patient with Nursing staff reviewed the chart.~Reviewed interim history and current functioning. Reviewed vital signs,~Labs/ Radiology~and current medications noted below. Continue current treatment with the changes noted in the dictated addendum note Assessment: Vital Signs/I&O: Vital Signs Date Time Temp Pulse Resp B/P (MAP) Pulse Ox O2 Delivery O2 Flow Rate FiO2 09/25/21 16:13 98.3 93 20 105/70 (82) 94 Room Air I & O 09/24/21 09/24/21 09/25/21 14:59 22:59 06:59 Intake Total 240 ml 240 ml Balance 240 ml 240 ml Labs: Laboratory Tests Test 09/25/21 06:57 09/25/21 09:20 White Blood Count 7.6 x10^3/uL (4.0-11.0) Red Blood Count 4.52 x10^6/uL (3.50-5.40) Hemoglobin 12.4 g/dL (12.0-15.5) Hematocrit 38.6 % (36.0-47.0) Mean Corpuscular Volume 86 fL (79-100) Mean Corpuscular Hemoglobin 28 pg (25-35) Mean Corpuscular Hemoglobin Concent 32 g/dL (31-37) Red Cell Distribution Width 16.2 % (11.5-14.5) H Platelet Count 168 x10^3/uL (140-400) Neutrophils (%) (Auto) 53 % (31-73) Lymphocytes (%) (Auto) 38 % (24-48) Monocytes (%) (Auto) 8 % (0-9) Eosinophils (%) (Auto) 0 % (0-3) Basophils (%) (Auto) 0 % (0-3) Neutrophils # (Auto) 4.1 x10^3uL (1.8-7.7) Lymphocytes # (Auto) 2.9 x10^3/uL (1.0-4.8) Monocytes # (Auto) 0.6 x10^3/uL (0.0-1.1) Eosinophils # (Auto) 0.0 x10^3/uL (0.0-0.7) Basophils # (Auto) 0.0 x10^3/uL (0.0-0.2) POC SARS CoV-2 Antigen Negative (NEGATIVE) Current Medications: Meds: Laboratory Tests Test 09/25/21 06:57 09/25/21 09:20 White Blood Count 7.6 x10^3/uL Red Blood Count 4.52 x10^6/uL Hemoglobin 12.4 g/dL Hematocrit 38.6 % Mean Corpuscular Volume 86 fL Mean Corpuscular Hemoglobin 28 pg Mean Corpuscular Hemoglobin Concent 32 g/dL Red Cell Distribution Width 16.2 % Platelet Count 168 x10^3/uL Neutrophils (%) (Auto) 53 % Lymphocytes (%) (Auto) 38 % Monocytes (%) (Auto) 8 % Eosinophils (%) (Auto) 0 % Basophils (%) (Auto) 0 % Neutrophils # (Auto) 4.1 x10^3uL Lymphocytes # (Auto) 2.9 x10^3/uL Monocytes # (Auto) 0.6 x10^3/uL Eosinophils # (Auto) 0.0 x10^3/uL Basophils # (Auto) 0.0 x10^3/uL POC SARS CoV-2 Antigen Negative Current Medications Medications (Trade) Dose Ordered Sig/Vania Route PRN Reason Start Time Stop Time Status Last Admin Dose Admin Cephalexin HCl (Keflex) 500 mg 1X ONCE PO 09/21/21 21:30 09/21/21 21:31 DC 09/21/21 21:10 Acetaminophen (Tylenol) 650 mg PRN Q6HRS PRN PO MILD PAIN / TEMP > 100.3'F 09/21/21 21:15 Multi-Ingredient Ointment (Analgesic [place]) 1 camacho PRN QID PRN TP MUSCLE PAIN 09/21/21 21:15 Al Hydroxide/Mg Hydroxide (Mylanta Plus Xs) 15 ml PRN AFTMEALHC PRN PO DYSPEPSIA 09/21/21 21:15 Magnesium Hydroxide (Milk Of Magnesia) 2,400 mg PRN QHS PRN PO CONSTIPATION 09/21/21 21:15 09/24/21 08:10 Cephalexin HCl (Keflex) 500 mg BID PO 09/22/21 09:00 09/28/21 23:00 09/25/21 20:50 Olanzapine (ZyPREXA ZYDIS) 5 mg PRN Q2HRS PRN PO PSYCHOSIS 09/22/21 00:00 Aspirin (Aspirin Enteric Coated) 81 mg DAILY PO 09/22/21 09:00 09/25/21 08:12 Atorvastatin Calcium (Lipitor) 20 mg QHS PO 09/22/21 21:00 09/25/21 20:50 Docusate Sodium (Colace) 100 mg DAILY PO 09/22/21 09:00 09/25/21 08:12 Guaifenesin (Mucinex Er) 600 mg PRN DAILY PRN PO Congestion/Mucus 09/22/21 00:15 Ibuprofen (Motrin) 600 mg PRN Q8HRS PRN PO Back Pain 09/22/21 00:15 Nitroglycerin (Nitrostat) 0.4 mg PRN Q5MIN PRN SL CHEST PAIN 09/22/21 00:15 Nystatin (Nystop) 1 camacho PRN BID PRN TP RASH 09/22/21 00:15 Fish Oil (Fish Oil) 2,000 mg BID PO 09/22/21 09:00 09/25/21 20:50 Sodium Chloride (Saline Mist Nasal) 1 camacho BID NS 09/22/21 09:00 09/25/21 20:49 Pantoprazole Sodium (Protonix) 40 mg DAILYAC PO 09/22/21 07:30 09/25/21 08:12 Polyethylene Glycol (miraLAX) 17 gm QODAY PO 09/22/21 09:00 09/24/21 08:09 Albuterol Sulfate (Ventolin Hfa Inhaler) 2 puff BID INH 09/22/21 09:00 09/25/21 20:49 Clozapine (Clozaril) 100 mg NOON PO 09/22/21 12:00 09/25/21 12:00 Clozapine (Clozaril) 400 mg HS PO 09/22/21 21:00 09/25/21 20:50 Lorazepam (Ativan) 0.5 mg PRN BID PRN PO ANXIETY 09/22/21 00:15 Melatonin (Melatonin) 6 mg QHS PO 09/22/21 21:00 09/25/21 20:50 Sertraline HCl (Zoloft) 75 mg HS PO 09/22/21 21:00 09/25/21 20:51 Trazodone HCl (Desyrel) 200 mg HS PO 09/22/21 21:00 09/25/21 20:50 Non-Formulary Medication (Quetiapine Fumarate (Quetiapine Fumarate ER)) 400 mg Daily at 1800 PO 09/22/21 00:15 09/25/21 17:25 DC Divalproex Sodium (Depakote Er) 500 mg HS PO 09/23/21 21:00 09/25/21 20:50 Vitamin D (Vitamin D3) 50,000 unit WEEKLY PO 09/24/21 11:45 09/24/21 11:45 Ferrous Sulfate (Feosol) 325 mg BID PO 09/24/21 21:00 09/25/21 20:50 Ascorbic Acid (Vitamin C) 500 mg BID PO 09/24/21 21:00 09/25/21 20:50 Nystatin (Nystop) 1 camacho PRN BID PRN TP RASH 09/25/21 06:15 09/25/21 19:56 DC Cefdinir (Omnicef) 300 mg BID PO 09/25/21 21:00 10/01/21 22:00 UNV Magnesium Citrate (Citroma) 296 ml PRN DAILY PRN PO 4TH CHOICE CONSTIPATION 09/25/21 15:45 Lactobacillus Rhamnosus (Culturelle) 1 cap BID PO 09/25/21 21:00 09/25/21 20:50 Current Medications Medications (Trade) Dose Ordered Sig/Vania Route PRN Reason Start Time Stop Time Status Last Admin Dose Admin Lactobacillus Rhamnosus (Culturelle) 1 cap BID PO 09/25/21 21:00 09/25/21 20:50 I have reviewed the current psychotropics carefully including drug interactions. Risk benefit ratio favors no change other than as noted in my dictated progress note. Diagnosis: Problems: (1) Schizoaffective disorder, bipolar type (2) Impulse control disorder, unspecified (3) Schizoaffective disorder, chronic condition with acute exacerbation (4) Anxiety disorder, unspecified (5) Bipolar disorder, current episode mixed, severe, with psychotic features KAYLEE CAMEJO MD September 25, 2021 21:33
[2021-09-26 06:20] VITALS: BP 102/63
[2021-09-26 06:35] LABS: ALBUMIN 2.8 g/dL (3.4-5.0); ALBUMIN/GLOBULIN RATIO 0.8 (1.0-1.7); CALCIUM 9.3 mg/dL (8.5-10.1); CREATININE 0.8 mg/dL (0.6-1.0); GFR 71.1; POTASSIUM 4.2 mmol/L (3.5-5.1); TOTAL BILIRUBIN 0.4 mg/dL (0.2-1.0); TOTAL PROTEIN 6.5 g/dL (6.4-8.2)
[2021-09-26 06:41] LABS: BASO % 0 % (0-3); EOS % 0 % (0-3); HEMOGLOBIN 13.2 g/dL (12.0-15.5); LYMPH # 2.8 x10^3/uL (1.0-4.8); LYMPH % 34 % (24-48); MEAN CORPUSCULAR HEMOGLOBIN 27 pg (25-35); MEAN CORPUSCULAR HGB CONC 32 g/dL (31-37); MEAN CORPUSCULAR VOLUME 85 fL (79-100); MONO # 0.7 x10^3/uL (0.0-1.1); MONO % 8 % (0-9); NEUT # 4.9 x10^3uL (1.8-7.7); NEUT % 58 % (31-73); PLATELET COUNT 178 x10^3/uL (140-400); RED BLOOD COUNT 4.81 x10^6/uL (3.50-5.40); RED CELL DISTRIBUTION WIDTH 16.7 % (11.5-14.5); WHITE BLOOD COUNT 8.5 x10^3/uL (4.0-11.0)
[2021-09-26 07:28] LABS: VAL ACID 48 mcg/mL (50-100)
[2021-09-26] MEDS: LACTOBACILLUS RHAMNOSUS GG 1 CAPSULE. PO SCH ×2 (08:25→20:34)
[2021-09-26] MEDS: PANTOPRAZOLE 40 MG TABLET. PO SCH (08:25)
[2021-09-26] MEDS: ASCORBIC ACID 500 MG TABLET PO SCH ×2 (08:25→20:34)
[2021-09-26] MEDS: POLYETHYLENE GLYCOL 3350 17 GM PACKET. PO SCH (08:25)
[2021-09-26] MEDS: OMEGA-3 FATTY ACIDS/FISH OIL 1,000 MG CAPSULE. PO SCH ×2 (08:25→20:33)
[2021-09-26] MEDS: ASPIRIN ENTERIC COATED 81 MG TABLET.DR. PO SCH (08:25)
[2021-09-26] MEDS: FERROUS SULFATE 325 MG TABLET. PO SCH ×2 (08:25→20:34)
[2021-09-26] MEDS: CEPHALEXIN 250 MG CAPSULE PO SCH ×2 (08:25→20:34)
[2021-09-26] MEDS: DOCUSATE SODIUM 100 MG CAPSULE PO SCH (08:25)
[2021-09-26] MEDS: ALBUTEROL SULFATE 8GM INHALER. INH SCH ×2 (08:29→20:33)
[2021-09-26] MEDS: SODIUM CHLORIDE 0.65% NASAL SPRAY 45ML BOTTLE. NS SCH ×2 (08:29→20:33)
--- NOTE | 2021-09-26 08:47 | PDOC ---
Exam Note: Toni Note: This note is a late entry for 09/25/2021 covers elements not covered in my initial note. Subjective: The patient was seen individually on 09/25/2021, discussed and reviewed the chart with Lovely MCKAY. The patient slept 6-1/2 hours previous night. She has been mourning at night, refused breakfast, was weight at lunchtime. Absolute neutrophil count is greater than 4000. I met with her in her room. She was lying on the floor on soft mattresses. Review of Systems: Ambulation impaired, in wheelchair. No CV, , pulmonary, eye, ENT system symptoms on review. Mental Status Exam: Patient is oriented to herself and situation. I talked to her at some length about lying in bed and she was not agreeable to this. Speech has some latency, coherent. Abstraction fair. Computation impaired. Language function intact. No active suicidal or homicidal ideation. Laboratory Data: Reviewed. Impression: Schizoaffective disorder bipolar type, mixed with acute exacerbation. Anxiety disorder unspecified. Impulse control disorder unspecified. Plan: Given some of her intermittent sedation, we will reduce the Seroquel from 400 mg at 1800 hours down to 200 mg but later we found that in fact her Seroquel had been stopped at admission. Maintain rest psychotropics unchanged including Clozapine and we are adjusting Depakote to reach therapeutic level. Labs level is awaited. Reviewed drug interactions and risk-benefit ratio. Assessment: Vital Signs/I&O: Vital Signs Date Time Temp Pulse Resp B/P (MAP) Pulse Ox O2 Delivery O2 Flow Rate FiO2 09/26/21 06:20 97.4 86 20 102/63 (76) 95 Room Air I & O 09/25/21 09/25/21 09/26/21 15:00 23:00 07:00 Intake Total 600 ml 118 ml 0 ml Balance 600 ml 118 ml 0 ml Labs: Laboratory Tests Test 09/25/21 09:20 09/26/21 05:59 POC SARS CoV-2 Antigen Negative (NEGATIVE) White Blood Count 8.5 x10^3/uL (4.0-11.0) Red Blood Count 4.81 x10^6/uL (3.50-5.40) Hemoglobin 13.2 g/dL (12.0-15.5) Hematocrit 41.0 % (36.0-47.0) Mean Corpuscular Volume 85 fL (79-100) Mean Corpuscular Hemoglobin 27 pg (25-35) Mean Corpuscular Hemoglobin Concent 32 g/dL (31-37) Red Cell Distribution Width 16.7 % (11.5-14.5) H Platelet Count 178 x10^3/uL (140-400) Neutrophils (%) (Auto) 58 % (31-73) Lymphocytes (%) (Auto) 34 % (24-48) Monocytes (%) (Auto) 8 % (0-9) Eosinophils (%) (Auto) 0 % (0-3) Basophils (%) (Auto) 0 % (0-3) Neutrophils # (Auto) 4.9 x10^3uL (1.8-7.7) Lymphocytes # (Auto) 2.8 x10^3/uL (1.0-4.8) Monocytes # (Auto) 0.7 x10^3/uL (0.0-1.1) Eosinophils # (Auto) 0.0 x10^3/uL (0.0-0.7) Basophils # (Auto) 0.0 x10^3/uL (0.0-0.2) Sodium Level 141 mmol/L (136-145) Potassium Level 4.2 mmol/L (3.5-5.1) Chloride Level 107 mmol/L (98-107) Carbon Dioxide Level 22 mmol/L (21-32) Anion Gap 12 (6-14) Blood Urea Nitrogen 17 mg/dL (7-20) Creatinine 0.8 mg/dL (0.6-1.0) Estimated GFR (Cockcroft-Gault) 71.1 BUN/Creatinine Ratio 21 (6-20) H Glucose Level 146 mg/dL (70-99) H Calcium Level 9.3 mg/dL (8.5-10.1) Total Bilirubin 0.4 mg/dL (0.2-1.0) Aspartate Amino Transferase (AST) 10 U/L (15-37) L Alanine Aminotransferase (ALT) 19 U/L (14-59) Alkaline Phosphatase 115 U/L (46-116) Ammonia 26 mcmol/L (11-34) Total Protein 6.5 g/dL (6.4-8.2) Albumin 2.8 g/dL (3.4-5.0) L Albumin/Globulin Ratio 0.8 (1.0-1.7) L Valproic Acid Level 48 mcg/mL (50-100) L Valproic Acid Last Dose Date 09/25/21 Valproic Acid Last Dose Time 2100 Current Medications: Meds: Current Medications Medications (Trade) Dose Ordered Sig/Vania Route PRN Reason Start Time Stop Time Status Last Admin Dose Admin Lactobacillus Rhamnosus (Culturelle) 1 cap BID PO 09/25/21 21:00 09/26/21 08:25 I have reviewed the current psychotropics carefully including drug interactions. Risk benefit ratio favors no change other than as noted in my dictated progress note. Diagnosis: Problems: (1) Schizoaffective disorder, chronic condition with acute exacerbation (2) Impulse control disorder, unspecified (3) Schizoaffective disorder, bipolar type (4) Anxiety disorder, unspecified (5) Bipolar disorder, current episode mixed, severe, with psychotic features KAYLEE CAMEJO MD September 26, 2021 08:47
[2021-09-26] MEDS: cloZAPine 100 MG TABLET PO SCH ×2 (14:46→20:34)
[2021-09-26 16:25] VITALS: BP 106/70
[2021-09-26] MEDS: ATORVASTATIN CALCIUM 20 MG TABLET PO SCH (20:33)
[2021-09-26] MEDS: DIVALPROEX ER 500 MG TAB.ER.24H PO SCH (20:33)
[2021-09-26] MEDS: traZODone 100 MG TABLET. PO SCH (20:34)
[2021-09-26] MEDS: MELATONIN 3 MG TABLET PO SCH (20:34)
[2021-09-26] MEDS: SERTRALINE 50 MG TABLET. PO SCH (20:35)
--- NOTE | 2021-09-26 21:36 | PDOC ---
Exam Note: Toni Note: Please also refer to the separate dictated note~for this date of service dictated separately.~Patient seen individually. Discussed the patient with Nursing staff reviewed the chart.~Reviewed interim history and current functioning. Reviewed vital signs,~Labs/ Radiology~and current medications noted below. Continue current treatment with the changes noted in the dictated addendum note Assessment: Vital Signs/I&O: Vital Signs Date Time Temp Pulse Resp B/P (MAP) Pulse Ox O2 Delivery O2 Flow Rate FiO2 09/26/21 16:25 98.2 92 16 106/70 (82) 94 Room Air I & O 09/25/21 09/25/21 09/26/21 15:00 23:00 07:00 Intake Total 600 ml 118 ml 0 ml Balance 600 ml 118 ml 0 ml Labs: Laboratory Tests Test 09/26/21 05:59 White Blood Count 8.5 x10^3/uL (4.0-11.0) Red Blood Count 4.81 x10^6/uL (3.50-5.40) Hemoglobin 13.2 g/dL (12.0-15.5) Hematocrit 41.0 % (36.0-47.0) Mean Corpuscular Volume 85 fL (79-100) Mean Corpuscular Hemoglobin 27 pg (25-35) Mean Corpuscular Hemoglobin Concent 32 g/dL (31-37) Red Cell Distribution Width 16.7 % (11.5-14.5) H Platelet Count 178 x10^3/uL (140-400) Neutrophils (%) (Auto) 58 % (31-73) Lymphocytes (%) (Auto) 34 % (24-48) Monocytes (%) (Auto) 8 % (0-9) Eosinophils (%) (Auto) 0 % (0-3) Basophils (%) (Auto) 0 % (0-3) Neutrophils # (Auto) 4.9 x10^3uL (1.8-7.7) Lymphocytes # (Auto) 2.8 x10^3/uL (1.0-4.8) Monocytes # (Auto) 0.7 x10^3/uL (0.0-1.1) Eosinophils # (Auto) 0.0 x10^3/uL (0.0-0.7) Basophils # (Auto) 0.0 x10^3/uL (0.0-0.2) Sodium Level 141 mmol/L (136-145) Potassium Level 4.2 mmol/L (3.5-5.1) Chloride Level 107 mmol/L (98-107) Carbon Dioxide Level 22 mmol/L (21-32) Anion Gap 12 (6-14) Blood Urea Nitrogen 17 mg/dL (7-20) Creatinine 0.8 mg/dL (0.6-1.0) Estimated GFR (Cockcroft-Gault) 71.1 BUN/Creatinine Ratio 21 (6-20) H Glucose Level 146 mg/dL (70-99) H Calcium Level 9.3 mg/dL (8.5-10.1) Total Bilirubin 0.4 mg/dL (0.2-1.0) Aspartate Amino Transferase (AST) 10 U/L (15-37) L Alanine Aminotransferase (ALT) 19 U/L (14-59) Alkaline Phosphatase 115 U/L (46-116) Ammonia 26 mcmol/L (11-34) Total Protein 6.5 g/dL (6.4-8.2) Albumin 2.8 g/dL (3.4-5.0) L Albumin/Globulin Ratio 0.8 (1.0-1.7) L Valproic Acid Level 48 mcg/mL (50-100) L Valproic Acid Last Dose Date 09/25/21 Valproic Acid Last Dose Time 2100 Current Medications: Meds: Laboratory Tests Test 09/26/21 05:59 White Blood Count 8.5 x10^3/uL Red Blood Count 4.81 x10^6/uL Hemoglobin 13.2 g/dL Hematocrit 41.0 % Mean Corpuscular Volume 85 fL Mean Corpuscular Hemoglobin 27 pg Mean Corpuscular Hemoglobin Concent 32 g/dL Red Cell Distribution Width 16.7 % Platelet Count 178 x10^3/uL Neutrophils (%) (Auto) 58 % Lymphocytes (%) (Auto) 34 % Monocytes (%) (Auto) 8 % Eosinophils (%) (Auto) 0 % Basophils (%) (Auto) 0 % Neutrophils # (Auto) 4.9 x10^3uL Lymphocytes # (Auto) 2.8 x10^3/uL Monocytes # (Auto) 0.7 x10^3/uL Eosinophils # (Auto) 0.0 x10^3/uL Basophils # (Auto) 0.0 x10^3/uL Sodium Level 141 mmol/L Potassium Level 4.2 mmol/L Chloride Level 107 mmol/L Carbon Dioxide Level 22 mmol/L Anion Gap 12 Blood Urea Nitrogen 17 mg/dL Creatinine 0.8 mg/dL Estimated GFR (Cockcroft-Gault) 71.1 BUN/Creatinine Ratio 21 Glucose Level 146 mg/dL Calcium Level 9.3 mg/dL Total Bilirubin 0.4 mg/dL Aspartate Amino Transf (AST/SGOT) 10 U/L Alanine Aminotransferase (ALT/SGPT) 19 U/L Alkaline Phosphatase 115 U/L Ammonia 26 mcmol/L Total Protein 6.5 g/dL Albumin 2.8 g/dL Albumin/Globulin Ratio 0.8 Valproic Acid (Depakene) Level 48 mcg/mL Valproic Acid Last Dose Date 09/25/21 Valproic Acid Last Dose Time 2100 Current Medications Medications (Trade) Dose Ordered Sig/Vania Route PRN Reason Start Time Stop Time Status Last Admin Dose Admin Cephalexin HCl (Keflex) 500 mg 1X ONCE PO 09/21/21 21:30 09/21/21 21:31 DC 09/21/21 21:10 Acetaminophen (Tylenol) 650 mg PRN Q6HRS PRN PO MILD PAIN / TEMP > 100.3'F 09/21/21 21:15 Multi-Ingredient Ointment (Analgesic [place]) 1 camacho PRN QID PRN TP MUSCLE PAIN 09/21/21 21:15 Al Hydroxide/Mg Hydroxide (Mylanta Plus Xs) 15 ml PRN AFTMEALHC PRN PO DYSPEPSIA 09/21/21 21:15 Magnesium Hydroxide (Milk Of Magnesia) 2,400 mg PRN QHS PRN PO 1ST CHOICE CONSTIPATION 09/21/21 21:15 09/24/21 08:10 Cephalexin HCl (Keflex) 500 mg BID PO 09/22/21 09:00 09/28/21 23:00 09/26/21 20:34 Olanzapine (ZyPREXA ZYDIS) 5 mg PRN Q2HRS PRN PO PSYCHOSIS 09/22/21 00:00 Aspirin (Aspirin Enteric Coated) 81 mg DAILY PO 09/22/21 09:00 09/26/21 08:25 Atorvastatin Calcium (Lipitor) 20 mg QHS PO 09/22/21 21:00 09/26/21 20:33 Docusate Sodium (Colace) 100 mg DAILY PO 09/22/21 09:00 09/26/21 08:25 Guaifenesin (Mucinex Er) 600 mg PRN DAILY PRN PO Congestion/Mucus 09/22/21 00:15 Ibuprofen (Motrin) 600 mg PRN Q8HRS PRN PO Back Pain 09/22/21 00:15 Nitroglycerin (Nitrostat) 0.4 mg PRN Q5MIN PRN SL CHEST PAIN 09/22/21 00:15 Nystatin (Nystop) 1 camacho PRN BID PRN TP RASH 09/22/21 00:15 Fish Oil (Fish Oil) 2,000 mg BID PO 09/22/21 09:00 09/26/21 20:33 Sodium Chloride (Saline Mist Nasal) 1 camacho BID NS 09/22/21 09:00 09/26/21 20:33 Pantoprazole Sodium (Protonix) 40 mg DAILYAC PO 09/22/21 07:30 09/26/21 08:25 Polyethylene Glycol (miraLAX) 17 gm QODAY PO 09/22/21 09:00 09/26/21 08:25 Albuterol Sulfate (Ventolin Hfa Inhaler) 2 puff BID INH 09/22/21 09:00 09/26/21 20:33 Clozapine (Clozaril) 100 mg NOON PO 09/22/21 12:00 09/26/21 14:46 Clozapine (Clozaril) 400 mg HS PO 09/22/21 21:00 09/26/21 20:34 Lorazepam (Ativan) 0.5 mg PRN BID PRN PO ANXIETY 09/22/21 00:15 Melatonin (Melatonin) 6 mg QHS PO 09/22/21 21:00 09/26/21 20:34 Sertraline HCl (Zoloft) 75 mg HS PO 09/22/21 21:00 09/26/21 20:35 Trazodone HCl (Desyrel) 200 mg HS PO 09/22/21 21:00 09/26/21 20:34 Non-Formulary Medication (Quetiapine Fumarate (Quetiapine Fumarate ER)) 400 mg Daily at 1800 PO 09/22/21 00:15 09/25/21 17:25 DC Divalproex Sodium (Depakote Er) 500 mg HS PO 09/23/21 21:00 09/26/21 20:33 Vitamin D (Vitamin D3) 50,000 unit WEEKLY PO 09/24/21 11:45 09/24/21 11:45 Ferrous Sulfate (Feosol) 325 mg BID PO 09/24/21 21:00 09/26/21 20:34 Ascorbic Acid (Vitamin C) 500 mg BID PO 09/24/21 21:00 09/26/21 20:34 Nystatin (Nystop) 1 camacho PRN BID PRN TP RASH 09/25/21 06:15 09/25/21 19:56 DC Cefdinir (Omnicef) 300 mg BID PO 09/25/21 21:00 10/01/21 22:00 UNV Magnesium Citrate (Citroma) 296 ml PRN DAILY PRN PO 2ND CHOICE CONSTIPATION 09/25/21 15:45 Lactobacillus Rhamnosus (Culturelle) 1 cap BID PO 09/25/21 21:00 09/26/21 20:34 Bisacodyl (Dulcolax Supp) 10 mg PRN DAILY PRN [place] CONSTIPATION 09/26/21 21:45 UNV I have reviewed the current psychotropics carefully including drug interactions. Risk benefit ratio favors no change other than as noted in my dictated progress note. Diagnosis: Problems: (1) Schizoaffective disorder, bipolar type (2) Impulse control disorder, unspecified (3) Schizoaffective disorder, chronic condition with acute exacerbation (4) Anxiety disorder, unspecified (5) Bipolar disorder, current episode mixed, severe, with psychotic features KAYLEE CAMEJO MD September 26, 2021 21:36
[2021-09-26] MEDS ORDERED: BISACODYL 10 MG SUPP.RECT PR PRN (21:45)
[2021-09-27 06:17] VITALS: BP 104/71
[2021-09-27] MEDS: DOCUSATE SODIUM 100 MG CAPSULE PO SCH (08:07)
[2021-09-27] MEDS: ASPIRIN ENTERIC COATED 81 MG TABLET.DR. PO SCH (08:07)
[2021-09-27] MEDS: OMEGA-3 FATTY ACIDS/FISH OIL 1,000 MG CAPSULE. PO SCH ×2 (08:08→20:11)
[2021-09-27] MEDS: FERROUS SULFATE 325 MG TABLET. PO SCH ×2 (08:08→20:13)
[2021-09-27] MEDS: CEPHALEXIN 250 MG CAPSULE PO SCH ×2 (08:08→20:11)
[2021-09-27] MEDS: ASCORBIC ACID 500 MG TABLET PO SCH ×2 (08:08→20:13)
[2021-09-27] MEDS: LACTOBACILLUS RHAMNOSUS GG 1 CAPSULE. PO SCH ×2 (08:08→20:13)
[2021-09-27] MEDS: SODIUM CHLORIDE 0.65% NASAL SPRAY 45ML BOTTLE. NS SCH ×2 (08:09→20:11)
[2021-09-27] MEDS: ALBUTEROL SULFATE 8GM INHALER. INH SCH ×2 (08:09→20:11)
[2021-09-27] MEDS: PANTOPRAZOLE 40 MG TABLET. PO SCH (08:09)
--- NOTE | 2021-09-27 09:02 | PDOC ---
Exam Note: Toni Note: This note is a late entry for 09/26/2021 covers elements not covered in my initial note. Subjective: The patient was seen individually on 09/26/2021, discussed and reviewed the chart with Lluvia MCKAY. There has been Covid exposure on the unit and the unit has been placed on quarantine as determined by Infectious Disease Department. The patient slept 6 hours previous night. She puts herself on the floor, frequently yelling intermittently, tries to walk with her wheelchair. I met with her in the dining room and then in her room. Review of Systems: Ambulation impaired, in wheelchair. No CV, , pulmonary, eye, ENT system symptoms on review. Mental Status Exam: Patient is oriented to herself and situation. Speech coherent. Abstraction fair. Computation impaired. Language function intact. No active suicidal or homicidal ideation. Laboratory Data: Reviewed. Impression: Schizoaffective disorder bipolar type, mixed with acute exac erbation. Anxiety disorder unspecified. Impulse control disorder unspecified. Plan: Continue rest of the psychotropics unchanged. Reviewed drug interactions and risk-benefit ratio. Continue Depakote at current dosage. Labs level to be obtained tomorrow. We will adjust thereafter. Maintain Clozapine. Make further adjustments as clinically indicated. Assessment: Vital Signs/I&O: Vital Signs Date Time Temp Pulse Resp B/P (MAP) Pulse Ox O2 Delivery O2 Flow Rate FiO2 09/27/21 06:17 97.5 108 18 104/71 (82) 93 Room Air I & O 09/26/21 09/26/21 09/27/21 15:00 23:00 07:00 Intake Total 480 ml Balance 480 ml Current Medications: Meds: Current Medications Medications (Trade) Dose Ordered Sig/Vania Route PRN Reason Start Time Stop Time Status Last Admin Dose Admin Bisacodyl (Dulcolax Supp) 10 mg PRN DAILY PRN [place] CONSTIPATION 09/26/21 21:45 09/26/21 21:47 I have reviewed the current psychotropics carefully including drug interactions. Risk benefit ratio favors no change other than as noted in my dictated progress note. Diagnosis: Problems: (1) Schizoaffective disorder, bipolar type (2) Impulse control disorder, unspecified (3) Schizoaffective disorder, chronic condition with acute exacerbation (4) Anxiety disorder, unspecified (5) Bipolar disorder, current episode mixed, severe, with psychotic features KAYLEE CAMEJO MD September 27, 2021 09:02
[2021-09-27] MEDS: cloZAPine 100 MG TABLET PO SCH ×2 (12:00→20:12)
[2021-09-27 16:55] VITALS: BP 101/70
[2021-09-27] MEDS: DIVALPROEX ER 500 MG TAB.ER.24H PO SCH (20:12)
[2021-09-27] MEDS: traZODone 100 MG TABLET. PO SCH (20:12)
[2021-09-27] MEDS: SERTRALINE 50 MG TABLET. PO SCH (20:13)
[2021-09-27] MEDS: ATORVASTATIN CALCIUM 20 MG TABLET PO SCH (20:13)
[2021-09-27] MEDS: MELATONIN 3 MG TABLET PO SCH (20:13)
--- NOTE | 2021-09-27 22:00 | PDOC ---
Exam Note: Toni Note: Please also refer to the separate dictated note~for this date of service dictated separately.~Patient seen individually. Discussed the patient with Nursing staff reviewed the chart.~Reviewed interim history and current functioning. Reviewed vital signs,~Labs/ Radiology~and current medications noted below. Continue current treatment with the changes noted in the dictated addendum note Assessment: Vital Signs/I&O: Vital Signs Date Time Temp Pulse Resp B/P (MAP) Pulse Ox O2 Delivery O2 Flow Rate FiO2 09/27/21 16:55 98.8 97 20 101/70 (80) 98 09/27/21 06:17 Room Air I & O 09/26/21 09/26/21 09/27/21 15:00 23:00 07:00 Intake Total 480 ml Balance 480 ml Current Medications: Meds: Current Medications Medications (Trade) Dose Ordered Sig/Vania Route PRN Reason Start Time Stop Time Status Last Admin Dose Admin Cephalexin HCl (Keflex) 500 mg 1X ONCE PO 09/21/21 21:30 09/21/21 21:31 DC 09/21/21 21:10 Acetaminophen (Tylenol) 650 mg PRN Q6HRS PRN PO MILD PAIN / TEMP > 100.3'F 09/21/21 21:15 Multi-Ingredient Ointment (Analgesic [place]) 1 camacho PRN QID PRN TP MUSCLE PAIN 09/21/21 21:15 Al Hydroxide/Mg Hydroxide (Mylanta Plus Xs) 15 ml PRN AFTMEALHC PRN PO DYSPEPSIA 09/21/21 21:15 Magnesium Hydroxide (Milk Of Magnesia) 2,400 mg PRN QHS PRN PO 1ST CHOICE CONSTIPATION 09/21/21 21:15 09/24/21 08:10 Cephalexin HCl (Keflex) 500 mg BID PO 09/22/21 09:00 09/28/21 23:00 09/27/21 20:11 Olanzapine (ZyPREXA ZYDIS) 5 mg PRN Q2HRS PRN PO PSYCHOSIS 09/22/21 00:00 Aspirin (Aspirin Enteric Coated) 81 mg DAILY PO 09/22/21 09:00 09/27/21 08:07 Atorvastatin Calcium (Lipitor) 20 mg QHS PO 09/22/21 21:00 09/27/21 20:13 Docusate Sodium (Colace) 100 mg DAILY PO 09/22/21 09:00 09/27/21 08:07 Guaifenesin (Mucinex Er) 600 mg PRN DAILY PRN PO Congestion/Mucus 09/22/21 00:15 Ibuprofen (Motrin) 600 mg PRN Q8HRS PRN PO Back Pain 09/22/21 00:15 Nitroglycerin (Nitrostat) 0.4 mg PRN Q5MIN PRN SL CHEST PAIN 09/22/21 00:15 Nystatin (Nystop) 1 camacho PRN BID PRN TP RASH 09/22/21 00:15 Fish Oil (Fish Oil) 2,000 mg BID PO 09/22/21 09:00 09/27/21 20:11 Sodium Chloride (Saline Mist Nasal) 1 camacho BID NS 09/22/21 09:00 09/27/21 20:11 Pantoprazole Sodium (Protonix) 40 mg DAILYAC PO 09/22/21 07:30 09/27/21 08:09 Polyethylene Glycol (miraLAX) 17 gm QODAY PO 09/22/21 09:00 09/26/21 08:25 Albuterol Sulfate (Ventolin Hfa Inhaler) 2 puff BID INH 09/22/21 09:00 09/27/21 20:11 Clozapine (Clozaril) 100 mg NOON PO 09/22/21 12:00 09/27/21 12:00 Clozapine (Clozaril) 400 mg HS PO 09/22/21 21:00 09/27/21 20:12 Lorazepam (Ativan) 0.5 mg PRN BID PRN PO ANXIETY 09/22/21 00:15 09/26/21 22:32 Melatonin (Melatonin) 6 mg QHS PO 09/22/21 21:00 09/27/21 20:13 Sertraline HCl (Zoloft) 75 mg HS PO 09/22/21 21:00 09/27/21 20:13 Trazodone HCl (Desyrel) 200 mg HS PO 09/22/21 21:00 09/27/21 20:12 Non-Formulary Medication (Quetiapine Fumarate (Quetiapine Fumarate ER)) 400 mg Daily at 1800 PO 09/22/21 00:15 09/25/21 17:25 DC Divalproex Sodium (Depakote Er) 500 mg HS PO 09/23/21 21:00 09/27/21 20:12 Vitamin D (Vitamin D3) 50,000 unit WEEKLY PO 09/24/21 11:45 09/24/21 11:45 Ferrous Sulfate (Feosol) 325 mg BID PO 09/24/21 21:00 09/27/21 20:13 Ascorbic Acid (Vitamin C) 500 mg BID PO 09/24/21 21:00 09/27/21 20:13 Nystatin (Nystop) 1 camacho PRN BID PRN TP RASH 09/25/21 06:15 09/25/21 19:56 DC Cefdinir (Omnicef) 300 mg BID PO 09/25/21 21:00 10/01/21 22:00 UNV Magnesium Citrate (Citroma) 296 ml PRN DAILY PRN PO 2ND CHOICE CONSTIPATION 09/25/21 15:45 Lactobacillus Rhamnosus (Culturelle) 1 cap BID PO 09/25/21 21:00 09/27/21 20:13 Bisacodyl (Dulcolax Supp) 10 mg PRN DAILY PRN [place] CONSTIPATION 09/26/21 21:45 09/26/21 21:47 I have reviewed the current psychotropics carefully including drug interactions. Risk benefit ratio favors no change other than as noted in my dictated progress note. Diagnosis: Problems: (1) Schizoaffective disorder, bipolar type (2) Impulse control disorder, unspecified (3) Schizoaffective disorder, chronic condition with acute exacerbation (4) Anxiety disorder, unspecified (5) Bipolar disorder, current episode mixed, severe, with psychotic features KAYLEE CAMEJO MD September 27, 2021 22:00
[2021-09-28 06:26] VITALS: BP 116/80
[2021-09-28] MEDS: OMEGA-3 FATTY ACIDS/FISH OIL 1,000 MG CAPSULE. PO SCH ×2 (08:28→20:45)
[2021-09-28] MEDS: DOCUSATE SODIUM 100 MG CAPSULE PO SCH (08:28)
[2021-09-28] MEDS: ASPIRIN ENTERIC COATED 81 MG TABLET.DR. PO SCH (08:28)
[2021-09-28] MEDS: FERROUS SULFATE 325 MG TABLET. PO SCH ×2 (08:28→20:47)
[2021-09-28] MEDS: LACTOBACILLUS RHAMNOSUS GG 1 CAPSULE. PO SCH ×2 (08:28→20:46)
[2021-09-28] MEDS: ALBUTEROL SULFATE 8GM INHALER. INH SCH ×2 (08:29→20:50)
[2021-09-28] MEDS: ASCORBIC ACID 500 MG TABLET PO SCH ×2 (08:29→20:46)
[2021-09-28] MEDS: PANTOPRAZOLE 40 MG TABLET. PO SCH (08:29)
[2021-09-28] MEDS: POLYETHYLENE GLYCOL 3350 17 GM PACKET. PO SCH (08:29)
[2021-09-28] MEDS: SODIUM CHLORIDE 0.65% NASAL SPRAY 45ML BOTTLE. NS SCH ×2 (08:29→20:49)
[2021-09-28] MEDS: CEPHALEXIN 250 MG CAPSULE PO SCH ×2 (08:29→20:46)
--- NOTE | 2021-09-28 08:37 | PDOC ---
Exam Note: Toni Note: This note is a late entry for 09/27/2021 covers elements not covered in my initial note. Subjective: The patient was seen individually on 09/27/2021, discussed and reviewed the chart with Lovely MCKAY. There has been Covid exposure on the unit and the unit has been placed on quarantine as determined by Infectious Disease Department. The patient slept 5-3/4 hours previous night. She comes out for meals otherwise withdrawn to her room, drops herself on the floor, mourning but this is better today. She received Ativan at 10.30 last night. She puts herself on the floor. Review of Systems: Ambulation impaired, in wheelchair. No CV, , pulmonary, eye, ENT system symptoms on review. Mental Status Exam: Patient is oriented to herself and situation. Speech coherent. Abstraction fair. Computation impaired. Language function intact. No active suicidal or homicidal ideation. Laboratory Data: Reviewed. Impression: Schizoaffective disorder bipolar type, mixed with acute exacerbation. Anxiety disorder unspecified. Impulse control disorder unspecified. Plan: Continue current psychotropics unchanged. Reviewed drug interactions and risk-benefit ratio. Depakote is being adjusted. Maintain Clozaril, melatonin, trazodone and Ativan p.r.n. Adjust as clinically indicated. Assessment: Vital Signs/I&O: Vital Signs Date Time Temp Pulse Resp B/P (MAP) Pulse Ox O2 Delivery O2 Flow Rate FiO2 09/28/21 06:26 97.1 98 18 116/80 (92) 93 Room Air I & O 09/27/21 09/27/21 09/28/21 15:00 23:00 07:00 Intake Total 300 ml 480 ml Balance 300 ml 480 ml Current Medications: I have reviewed the current psychotropics carefully including drug interactions. Risk benefit ratio favors no change other than as noted in my dictated progress note. Diagnosis: Problems: (1) Schizoaffective disorder, bipolar type (2) Impulse control disorder, unspecified (3) Schizoaffective disorder, chronic condition with acute exacerbation (4) Anxiety disorder, unspecified (5) Bipolar disorder, current episode mixed, severe, with psychotic features KAYLEE CAMEJO MD September 28, 2021 08:37
[2021-09-28] MEDS: cloZAPine 100 MG TABLET PO SCH ×2 (12:32→20:46)
[2021-09-28 16:48] VITALS: BP 134/69
[2021-09-28] MEDS: SERTRALINE 50 MG TABLET. PO SCH (20:45)
[2021-09-28] MEDS: MELATONIN 3 MG TABLET PO SCH (20:45)
[2021-09-28] MEDS: ATORVASTATIN CALCIUM 20 MG TABLET PO SCH (20:46)
[2021-09-28] MEDS: DIVALPROEX ER 250 MG TAB.ER.24H. PO SCH (20:46)
[2021-09-28] MEDS: traZODone 100 MG TABLET. PO SCH (20:46)
--- NOTE | 2021-09-28 21:08 | PDOC ---
Exam Note: Toni Note: Please also refer to the separate dictated note~for this date of service dictated separately.~Patient seen individually. Discussed the patient with Nursing staff reviewed the chart.~Reviewed interim history and current functioning. Reviewed vital signs,~Labs/ Radiology~and current medications noted below. Continue current treatment with the changes noted in the dictated addendum note Assessment: Vital Signs/I&O: Vital Signs Date Time Temp Pulse Resp B/P (MAP) Pulse Ox O2 Delivery O2 Flow Rate FiO2 09/28/21 16:48 97.6 87 16 134/69 (90) 97 09/28/21 06:26 Room Air I & O 09/27/21 09/27/21 09/28/21 15:00 23:00 07:00 Intake Total 300 ml 480 ml Balance 300 ml 480 ml Current Medications: Meds: Current Medications Medications (Trade) Dose Ordered Sig/Vania Route PRN Reason Start Time Stop Time Status Last Admin Dose Admin Cephalexin HCl (Keflex) 500 mg 1X ONCE PO 09/21/21 21:30 09/21/21 21:31 DC 09/21/21 21:10 Acetaminophen (Tylenol) 650 mg PRN Q6HRS PRN PO MILD PAIN / TEMP > 100.3'F 09/21/21 21:15 Multi-Ingredient Ointment (Analgesic [place]) 1 camacho PRN QID PRN TP MUSCLE PAIN 09/21/21 21:15 Al Hydroxide/Mg Hydroxide (Mylanta Plus Xs) 15 ml PRN AFTMEALHC PRN PO DYSPEPSIA 09/21/21 21:15 Magnesium Hydroxide (Milk Of Magnesia) 2,400 mg PRN QHS PRN PO 1ST CHOICE CONSTIPATION 09/21/21 21:15 09/24/21 08:10 Cephalexin HCl (Keflex) 500 mg BID PO 09/22/21 09:00 09/28/21 23:00 09/28/21 20:46 Olanzapine (ZyPREXA ZYDIS) 5 mg PRN Q2HRS PRN PO PSYCHOSIS 09/22/21 00:00 Aspirin (Aspirin Enteric Coated) 81 mg DAILY PO 09/22/21 09:00 09/28/21 08:28 Atorvastatin Calcium (Lipitor) 20 mg QHS PO 09/22/21 21:00 09/28/21 20:46 Docusate Sodium (Colace) 100 mg DAILY PO 09/22/21 09:00 09/28/21 08:28 Guaifenesin (Mucinex Er) 600 mg PRN DAILY PRN PO Congestion/Mucus 09/22/21 00:15 Ibuprofen (Motrin) 600 mg PRN Q8HRS PRN PO Back Pain 09/22/21 00:15 Nitroglycerin (Nitrostat) 0.4 mg PRN Q5MIN PRN SL CHEST PAIN 09/22/21 00:15 Nystatin (Nystop) 1 camacho PRN BID PRN TP RASH 09/22/21 00:15 Fish Oil (Fish Oil) 2,000 mg BID PO 09/22/21 09:00 09/28/21 20:45 Sodium Chloride (Saline Mist Nasal) 1 camacho BID NS 09/22/21 09:00 09/28/21 20:49 Pantoprazole Sodium (Protonix) 40 mg DAILYAC PO 09/22/21 07:30 09/28/21 08:29 Polyethylene Glycol (miraLAX) 17 gm QODAY PO 09/22/21 09:00 09/28/21 08:29 Albuterol Sulfate (Ventolin Hfa Inhaler) 2 puff BID INH 09/22/21 09:00 09/28/21 20:50 Clozapine (Clozaril) 100 mg NOON PO 09/22/21 12:00 09/28/21 12:32 Clozapine (Clozaril) 400 mg HS PO 09/22/21 21:00 09/28/21 20:46 Lorazepam (Ativan) 0.5 mg PRN BID PRN PO ANXIETY 09/22/21 00:15 09/26/21 22:32 Melatonin (Melatonin) 6 mg QHS PO 09/22/21 21:00 09/28/21 20:45 Sertraline HCl (Zoloft) 75 mg HS PO 09/22/21 21:00 09/28/21 20:45 Trazodone HCl (Desyrel) 200 mg HS PO 09/22/21 21:00 09/28/21 20:46 Non-Formulary Medication (Quetiapine Fumarate (Quetiapine Fumarate ER)) 400 mg Daily at 1800 PO 09/22/21 00:15 09/25/21 17:25 DC Divalproex Sodium (Depakote Er) 500 mg HS PO 09/23/21 21:00 09/28/21 11:41 DC 09/27/21 20:12 Vitamin D (Vitamin D3) 50,000 unit WEEKLY PO 09/24/21 11:45 09/24/21 11:45 Ferrous Sulfate (Feosol) 325 mg BID PO 09/24/21 21:00 09/28/21 20:47 Ascorbic Acid (Vitamin C) 500 mg BID PO 09/24/21 21:00 09/28/21 20:46 Nystatin (Nystop) 1 camacho PRN BID PRN TP RASH 09/25/21 06:15 09/25/21 19:56 DC Cefdinir (Omnicef) 300 mg BID PO 09/25/21 21:00 10/01/21 22:00 UNV Magnesium Citrate (Citroma) 296 ml PRN DAILY PRN PO 2ND CHOICE CONSTIPATION 09/25/21 15:45 Lactobacillus Rhamnosus (Culturelle) 1 cap BID PO 09/25/21 21:00 09/28/21 20:46 Bisacodyl (Dulcolax Supp) 10 mg PRN DAILY PRN [place] CONSTIPATION 09/26/21 21:45 09/26/21 21:47 Divalproex Sodium (Depakote Er) 750 mg QHS PO 09/28/21 21:00 09/28/21 20:46 Current Medications Medications (Trade) Dose Ordered Sig/Vania Route PRN Reason Start Time Stop Time Status Last Admin Dose Admin Divalproex Sodium (Depakote Er) 750 mg QHS PO 09/28/21 21:00 09/28/21 20:46 I have reviewed the current psychotropics carefully including drug interactions. Risk benefit ratio favors no change other than as noted in my dictated progress note. Diagnosis: Problems: (1) Schizoaffective disorder, bipolar type (2) Impulse control disorder, unspecified (3) Schizoaffective disorder, chronic condition with acute exacerbation (4) Anxiety disorder, unspecified (5) Bipolar disorder, current episode mixed, severe, with psychotic features KAYLEE CAMEJO MD September 28, 2021 21:08
[2021-09-29 06:41] VITALS: BP 120/75
[2021-09-29] MEDS: SODIUM CHLORIDE 0.65% NASAL SPRAY 45ML BOTTLE. NS SCH ×2 (08:24→20:06)
[2021-09-29] MEDS: DOCUSATE SODIUM 100 MG CAPSULE PO SCH (08:26)
[2021-09-29] MEDS: PANTOPRAZOLE 40 MG TABLET. PO SCH (08:26)
[2021-09-29] MEDS: ASCORBIC ACID 500 MG TABLET PO SCH ×2 (08:26→20:07)
[2021-09-29] MEDS: ASPIRIN ENTERIC COATED 81 MG TABLET.DR. PO SCH (08:26)
[2021-09-29] MEDS: FERROUS SULFATE 325 MG TABLET. PO SCH ×2 (08:26→20:06)
[2021-09-29] MEDS: LACTOBACILLUS RHAMNOSUS GG 1 CAPSULE. PO SCH ×2 (08:26→20:06)
[2021-09-29] MEDS: OMEGA-3 FATTY ACIDS/FISH OIL 1,000 MG CAPSULE. PO SCH ×2 (08:26→20:06)
[2021-09-29] MEDS: ALBUTEROL SULFATE 8GM INHALER. INH SCH ×2 (08:27→20:07)
[2021-09-29] MEDS: cloZAPine 100 MG TABLET PO SCH ×2 (11:59→20:07)
[2021-09-29 16:29] VITALS: BP 119/74
[2021-09-29] MEDS: SERTRALINE 50 MG TABLET. PO SCH (20:06)
[2021-09-29] MEDS: traZODone 100 MG TABLET. PO SCH (20:06)
[2021-09-29] MEDS: MELATONIN 3 MG TABLET PO SCH (20:06)
[2021-09-29] MEDS: DIVALPROEX ER 250 MG TAB.ER.24H. PO SCH (20:07)
[2021-09-29] MEDS: ATORVASTATIN CALCIUM 20 MG TABLET PO SCH (20:07)
--- NOTE | 2021-09-29 21:52 | PDOC ---
Exam Note: Toni Note: This note is a late entry for 09/28/2021 covers elements not covered in my initial note. Subjective: The patient was reviewed at treatment team meeting individually in the morning on 09/28/2021 with Itzel Ashley, Josy Lorenz, and Kiah Ross (social psychologist), and Bozena, activity therapy, and Lisa MKCAY, discussed and reviewed the chart. The patient slept 7-1/4 hours previous night. Average sleep 6 hours. He has been on the mat on the floor of her room and previous night she was oriented to herself, her birthday and year. Arrangements have been made for distal removal of her stools since she has got significant constipation, worsening her mood lability. As I met with her in her room she was lying on the floor on the mattress unable to explain why she prefers that. Review of Systems: Ambulation impaired, in wheelchair. No CV, , pulmonary, eye, ENT system symptoms on review. Mental Status Exam: Patient is oriented to herself and situation. Speech coherent. Abstraction fair. Computation impaired. Language function intact. No active suicidal or homicidal ideation. Laboratory Data: Reviewed. Impression: Schizoaffective disorder bipolar type, mixed with acute exacer bation. Anxiety disorder unspecified. Impulse control disorder unspecified. Plan: Continue current psychotropics unchanged. Reviewed drug interactions and risk-benefit ratio. Assessment: Vital Signs/I&O: Vital Signs Date Time Temp Pulse Resp B/P (MAP) Pulse Ox O2 Delivery O2 Flow Rate FiO2 09/29/21 16:29 97.5 99 20 119/74 (89) 96 09/29/21 06:41 Room Air I & O 09/28/21 09/28/21 09/29/21 15:00 23:00 07:00 Intake Total 720 ml 360 ml Output Total 1 ml Balance 720 ml 360 ml -1 ml Current Medications: I have reviewed the current psychotropics carefully including drug interactions. Risk benefit ratio favors no change other than as noted in my dictated progress note. Diagnosis: Problems: (1) Impulse control disorder, unspecified (2) Schizoaffective disorder, chronic condition with acute exacerbation (3) Anxiety disorder, unspecified (4) Bipolar disorder, current episode mixed, severe, with psychotic features KAYLEE CAMEJO MD September 29, 2021 21:52
--- NOTE | 2021-09-29 22:06 | PDOC ---
Exam Note: Toni Note: Please also refer to the separate dictated note~for this date of service dictated separately.~Patient seen individually. Discussed the patient with Nursing staff reviewed the chart.~Reviewed interim history and current functioning. Reviewed vital signs,~Labs/ Radiology~and current medications noted below. Continue current treatment with the changes noted in the dictated addendum note Assessment: Vital Signs/I&O: Vital Signs Date Time Temp Pulse Resp B/P (MAP) Pulse Ox O2 Delivery O2 Flow Rate FiO2 09/29/21 16:29 97.5 99 20 119/74 (89) 96 09/29/21 06:41 Room Air I & O 09/28/21 09/28/21 09/29/21 15:00 23:00 07:00 Intake Total 720 ml 360 ml Output Total 1 ml Balance 720 ml 360 ml -1 ml Current Medications: Meds: Current Medications Medications (Trade) Dose Ordered Sig/Vania Route PRN Reason Start Time Stop Time Status Last Admin Dose Admin Cephalexin HCl (Keflex) 500 mg 1X ONCE PO 09/21/21 21:30 09/21/21 21:31 DC 09/21/21 21:10 Acetaminophen (Tylenol) 650 mg PRN Q6HRS PRN PO MILD PAIN / TEMP > 100.3'F 09/21/21 21:15 Multi-Ingredient Ointment (Analgesic [place]) 1 camacho PRN QID PRN TP MUSCLE PAIN 09/21/21 21:15 Al Hydroxide/Mg Hydroxide (Mylanta Plus Xs) 15 ml PRN AFTMEALHC PRN PO DYSPEPSIA 09/21/21 21:15 Magnesium Hydroxide (Milk Of Magnesia) 2,400 mg PRN QHS PRN PO 1ST CHOICE CONSTIPATION 09/21/21 21:15 09/24/21 08:10 Cephalexin HCl (Keflex) 500 mg BID PO 09/22/21 09:00 09/28/21 23:00 DC 09/28/21 20:46 Olanzapine (ZyPREXA ZYDIS) 5 mg PRN Q2HRS PRN PO PSYCHOSIS 09/22/21 00:00 Aspirin (Aspirin Enteric Coated) 81 mg DAILY PO 09/22/21 09:00 09/29/21 08:26 Atorvastatin Calcium (Lipitor) 20 mg QHS PO 09/22/21 21:00 09/29/21 20:07 Docusate Sodium (Colace) 100 mg DAILY PO 09/22/21 09:00 09/29/21 08:26 Guaifenesin (Mucinex Er) 600 mg PRN DAILY PRN PO Congestion/Mucus 09/22/21 00:15 Ibuprofen (Motrin) 600 mg PRN Q8HRS PRN PO Back Pain 09/22/21 00:15 Nitroglycerin (Nitrostat) 0.4 mg PRN Q5MIN PRN SL CHEST PAIN 09/22/21 00:15 Nystatin (Nystop) 1 camacho PRN BID PRN TP RASH 09/22/21 00:15 Fish Oil (Fish Oil) 2,000 mg BID PO 09/22/21 09:00 09/29/21 20:06 Sodium Chloride (Saline Mist Nasal) 1 camacho BID NS 09/22/21 09:00 09/29/21 20:06 Pantoprazole Sodium (Protonix) 40 mg DAILYAC PO 09/22/21 07:30 09/29/21 08:26 Polyethylene Glycol (miraLAX) 17 gm QODAY PO 09/22/21 09:00 09/28/21 08:29 Albuterol Sulfate (Ventolin Hfa Inhaler) 2 puff BID INH 09/22/21 09:00 09/29/21 20:07 Clozapine (Clozaril) 100 mg NOON PO 09/22/21 12:00 09/29/21 11:59 Clozapine (Clozaril) 400 mg HS PO 09/22/21 21:00 09/29/21 20:07 Lorazepam (Ativan) 0.5 mg PRN BID PRN PO ANXIETY 09/22/21 00:15 09/26/21 22:32 Melatonin (Melatonin) 6 mg QHS PO 09/22/21 21:00 09/29/21 20:06 Sertraline HCl (Zoloft) 75 mg HS PO 09/22/21 21:00 09/29/21 20:06 Trazodone HCl (Desyrel) 200 mg HS PO 09/22/21 21:00 09/29/21 20:06 Non-Formulary Medication (Quetiapine Fumarate (Quetiapine Fumarate ER)) 400 mg Daily at 1800 PO 09/22/21 00:15 09/25/21 17:25 DC Divalproex Sodium (Depakote Er) 500 mg HS PO 09/23/21 21:00 09/28/21 11:41 DC 09/27/21 20:12 Vitamin D (Vitamin D3) 50,000 unit WEEKLY PO 09/24/21 11:45 09/24/21 11:45 Ferrous Sulfate (Feosol) 325 mg BID PO 09/24/21 21:00 09/29/21 20:06 Ascorbic Acid (Vitamin C) 500 mg BID PO 09/24/21 21:00 09/29/21 20:07 Nystatin (Nystop) 1 camacho PRN BID PRN TP RASH 09/25/21 06:15 09/25/21 19:56 DC Cefdinir (Omnicef) 300 mg BID PO 09/25/21 21:00 10/01/21 22:00 UNV Magnesium Citrate (Citroma) 296 ml PRN DAILY PRN PO 2ND CHOICE CONSTIPATION 09/25/21 15:45 Lactobacillus Rhamnosus (Culturelle) 1 cap BID PO 09/25/21 21:00 09/29/21 20:06 Bisacodyl (Dulcolax Supp) 10 mg PRN DAILY PRN [place] 3RD CHOICE CONSTIPATION 09/26/21 21:45 09/26/21 21:47 Divalproex Sodium (Depakote Er) 750 mg QHS PO 09/28/21 21:00 09/29/21 20:07 I have reviewed the current psychotropics carefully including drug interactions. Risk benefit ratio favors no change other than as noted in my dictated progress note. Diagnosis: Problems: (1) Schizoaffective disorder, bipolar type (2) Impulse control disorder, unspecified (3) Anxiety disorder, unspecified (4) Bipolar disorder, current episode mixed, severe, with psychotic features KAYLEE CAMEJO MD September 29, 2021 22:06
[2021-09-30 06:11] VITALS: BP 116/71
[2021-09-30] MEDS: SODIUM CHLORIDE 0.65% NASAL SPRAY 45ML BOTTLE. NS SCH ×2 (08:00→20:22)
[2021-09-30] MEDS: POLYETHYLENE GLYCOL 3350 17 GM PACKET. PO SCH (08:00)
[2021-09-30] MEDS: DOCUSATE SODIUM 100 MG CAPSULE PO SCH (08:00)
[2021-09-30] MEDS: cloZAPine 100 MG TABLET PO SCH ×2 (08:00→20:15)
[2021-09-30] MEDS: FERROUS SULFATE 325 MG TABLET. PO SCH ×2 (08:00→20:22)
[2021-09-30] MEDS: ASCORBIC ACID 500 MG TABLET PO SCH ×2 (08:00→20:22)
[2021-09-30] MEDS: LACTOBACILLUS RHAMNOSUS GG 1 CAPSULE. PO SCH ×2 (08:00→20:22)
[2021-09-30] MEDS: ASPIRIN ENTERIC COATED 81 MG TABLET.DR. PO SCH (08:00)
[2021-09-30] MEDS: ALBUTEROL SULFATE 8GM INHALER. INH SCH ×2 (08:00→20:23)
[2021-09-30] MEDS: OMEGA-3 FATTY ACIDS/FISH OIL 1,000 MG CAPSULE. PO SCH ×2 (08:00→20:14)
[2021-09-30] MEDS: PANTOPRAZOLE 40 MG TABLET. PO SCH (08:00)
--- NOTE | 2021-09-30 08:45 | PDOC ---
Exam Note: Toni Note: This note is a late entry for 09/29/2021 covers elements not covered in my initial note. Subjective: The patient was seen individually on 09/29/2021, discussed and reviewed the chart with Vero MCKAY. The patient slept 7-1/2 hours previous night. She still puts herself on the floor. She did well in the morning. She is compliant with medications, mourning at times. Labs on valproic level to be checked on 10/02/21. I met with her in the dining room. She was treating herself. Review of Systems: Ambulation impaired, in wheelchair. No CV, , pulmonary, eye, ENT system symptoms on review. Mental Status Exam: Patient is oriented to herself and situation. Speech coherent. Abstraction fair. Computation impaired. Language function intact. No active suicidal or homicidal ideation. Laboratory Data: Reviewed. Impression: Schizoaffective disorder bipolar type, mixed with acute exacerbation. Anxiety disorder unspecified. Impulse control disorder unspecified. Plan: Continue current psychotropics unchanged. Reviewed drug interactions and risk-benefit ratio. Follow labs level on Depakote. Maintain Clozaril. Dr. Santamaria will cover for me from 09/30/2021 until 10/17/2021. Assessment: Vital Signs/I&O: Vital Signs Date Time Temp Pulse Resp B/P (MAP) Pulse Ox O2 Delivery O2 Flow Rate FiO2 09/30/21 06:11 98.1 102 18 116/71 (86) 95 09/29/21 06:41 Room Air I & O 09/29/21 09/29/21 09/30/21 15:00 23:00 07:00 Intake Total 580 ml 360 ml Balance 580 ml 360 ml Current Medications: I have reviewed the current psychotropics carefully including drug interactions. Risk benefit ratio favors no change other than as noted in my dictated progress note. Diagnosis: Problems: (1) Schizoaffective disorder, bipolar type (2) Impulse control disorder, unspecified (3) Anxiety disorder, unspecified (4) Bipolar disorder, current episode mixed, severe, with psychotic features KAYLEE CAMEJO MD September 30, 2021 08:45
[2021-09-30 15:54] VITALS: BP 107/69
[2021-09-30] MEDS: DIVALPROEX ER 250 MG TAB.ER.24H. PO SCH (20:15)
[2021-09-30] MEDS: SERTRALINE 50 MG TABLET. PO SCH (20:15)
[2021-09-30] MEDS: MELATONIN 3 MG TABLET PO SCH (20:22)
[2021-09-30] MEDS: traZODone 100 MG TABLET. PO SCH (20:22)
[2021-09-30] MEDS: ATORVASTATIN CALCIUM 20 MG TABLET PO SCH (20:23)
--- NOTE | 2021-10-01 03:52 | PN ---
DATE: 09/30/2021 SUBJECTIVE: The patient was seen today, met with the staff, chart reviewed and also covering for Dr. Urbina. Staff reports she is exhibiting episodic behavior problems, refusing breakfast today, attention seeking. The patient is medication compliant. OBSERVATION: VITAL SIGNS: Temperature 98.1, blood pressure 116/71, pulse 102, respirations 18, O2 sat 95%. GENERAL: Slept about 7 hours last night. The patient's appetite is fair. CURRENT MEDICATIONS: Include Depakote 750 mg at night, trazodone 200 mg at night, Zoloft 75 mg at night, melatonin 6 mg at night, Clozaril 400 mg at night and 100 mg at noon. She is also on lorazepam 0.5 mg twice a day as needed. The patient is also on olanzapine 5 mg q. 2 hours p.r.n. LABORATORY DATA: The patient's lab reviewed. The patient's Depakote level was 48. ASSESSMENT: 1. Schizoaffective disorder, bipolar type, mixed, with acute exacerbation. 2. Anxiety disorder, unspecified. PLAN: To continue with the treatment. LENGTH OF STAY: Seven days. RO[address]IE DR: [place] TID: [id number]
[2021-10-01 06:26] VITALS: BP 91/61
[2021-10-01 07:39] LABS: BASO % 1 % (0-3); EOS % 0 % (0-3); HEMATOCRIT 36.3 % (36.0-47.0); HEMOGLOBIN 11.7 g/dL (12.0-15.5); LYMPH # 2.5 x10^3/uL (1.0-4.8); LYMPH % 38 % (24-48); MEAN CORPUSCULAR HEMOGLOBIN 28 pg (25-35); MEAN CORPUSCULAR HGB CONC 32 g/dL (31-37); MEAN CORPUSCULAR VOLUME 86 fL (79-100); MONO # 0.6 x10^3/uL (0.0-1.1); MONO % 9 % (0-9); NEUT # 3.6 x10^3uL (1.8-7.7); NEUT % 53 % (31-73); PLATELET COUNT 169 x10^3/uL (140-400); RED BLOOD COUNT 4.22 x10^6/uL (3.50-5.40); RED CELL DISTRIBUTION WIDTH 16.9 % (11.5-14.5); WHITE BLOOD COUNT 6.8 x10^3/uL (4.0-11.0)
--- NOTE | 2021-10-01 07:42 | RAD ---
EXAM: Chest, single view. HISTORY: Hypoxia. COMPARISON: None. FINDINGS: A frontal view of the chest is obtained. There is suspected right lower lobe atelectasis or scarring. There is no consolidation, pleural effusion or pneumothorax. The heart is normal in size. IMPRESSION: Suspected right lower lobe atelectasis or scarring. Electronically signed by: Lisa Ramey MD (10/01/2021 7:40 AM) [id number]
[2021-10-01 07:54] LABS: ALBUMIN 2.4 g/dL (3.4-5.0); ALBUMIN/GLOBULIN RATIO 0.8 (1.0-1.7); CALCIUM 8.8 mg/dL (8.5-10.1); CREATININE 0.8 mg/dL (0.6-1.0); GFR 71.1; TOTAL BILIRUBIN 0.3 mg/dL (0.2-1.0); TOTAL PROTEIN 5.4 g/dL (6.4-8.2)
[2021-10-01] MEDS: SODIUM CHLORIDE 0.65% NASAL SPRAY 45ML BOTTLE. NS SCH ×2 (08:15→20:10)
[2021-10-01] MEDS: DOCUSATE SODIUM 100 MG CAPSULE PO SCH (08:16)
[2021-10-01] MEDS: OMEGA-3 FATTY ACIDS/FISH OIL 1,000 MG CAPSULE. PO SCH ×2 (08:16→20:11)
[2021-10-01] MEDS: ASCORBIC ACID 500 MG TABLET PO SCH ×2 (08:16→20:11)
[2021-10-01] MEDS: FERROUS SULFATE 325 MG TABLET. PO SCH ×2 (08:16→20:11)
[2021-10-01] MEDS: ASPIRIN ENTERIC COATED 81 MG TABLET.DR. PO SCH (08:16)
[2021-10-01] MEDS: PANTOPRAZOLE 40 MG TABLET. PO SCH (08:16)
[2021-10-01] MEDS: LACTOBACILLUS RHAMNOSUS GG 1 CAPSULE. PO SCH ×2 (08:16→20:11)
[2021-10-01] MEDS: POLYETHYLENE GLYCOL 3350 17 GM PACKET. PO SCH (08:17)
[2021-10-01] MEDS: ALBUTEROL SULFATE 8GM INHALER. INH SCH ×2 (08:17→20:10)
[2021-10-01] MEDS: CHOLECALCIFEROL (VITAMIN D3) 50,000 UNIT CAPSULE PO SCH (08:19)
[2021-10-01 10:03] LABS: BASO % 0 % (0-3); EOS % 0 % (0-3); HEMOGLOBIN 12.7 g/dL (12.0-15.5); LYMPH % 25 % (24-48); MEAN CORPUSCULAR HEMOGLOBIN 28 pg (25-35); MEAN CORPUSCULAR HGB CONC 32 g/dL (31-37); MEAN CORPUSCULAR VOLUME 87 fL (79-100); MONO # 0.6 x10^3/uL (0.0-1.1); MONO % 8 % (0-9); NEUT # 5.4 x10^3uL (1.8-7.7); NEUT % 67 % (31-73); PLATELET COUNT 177 x10^3/uL (140-400); RED BLOOD COUNT 4.59 x10^6/uL (3.50-5.40); RED CELL DISTRIBUTION WIDTH 16.5 % (11.5-14.5); WHITE BLOOD COUNT 8.1 x10^3/uL (4.0-11.0)
[2021-10-01 10:11] LABS: CALCIUM 9.3 mg/dL (8.5-10.1); CREATININE 0.8 mg/dL (0.6-1.0); GFR 71.1; POTASSIUM 4.1 mmol/L (3.5-5.1)
[2021-10-01 10:17] LABS: ALBUMIN 2.7 g/dL (3.4-5.0); ALBUMIN/GLOBULIN RATIO 0.8 (1.0-1.7); TOTAL BILIRUBIN 0.3 mg/dL (0.2-1.0)
[2021-10-01] MEDS: cloZAPine 100 MG TABLET PO SCH ×2 (12:00→20:11)
[2021-10-01 15:46] VITALS: BP 109/72
[2021-10-01] MEDS: ATORVASTATIN CALCIUM 20 MG TABLET PO SCH (20:11)
[2021-10-01] MEDS: MELATONIN 3 MG TABLET PO SCH (20:11)
[2021-10-01] MEDS: AMOXICILLIN 250 MG CAPSULE PO SCH (20:11)
[2021-10-01] MEDS: traZODone 100 MG TABLET. PO SCH (20:11)
[2021-10-01] MEDS: DIVALPROEX ER 250 MG TAB.ER.24H. PO SCH (20:11)
[2021-10-01] MEDS: SERTRALINE 50 MG TABLET. PO SCH (20:12)
[2021-10-02 06:06] VITALS: BP 108/68
[2021-10-02 07:13] LABS: BASO % 0 % (0-3); EOS % 0 % (0-3); HEMATOCRIT 35.7 % (36.0-47.0); HEMOGLOBIN 11.7 g/dL (12.0-15.5); LYMPH # 2.6 x10^3/uL (1.0-4.8); LYMPH % 34 % (24-48); MEAN CORPUSCULAR HEMOGLOBIN 28 pg (25-35); MEAN CORPUSCULAR HGB CONC 33 g/dL (31-37); MEAN CORPUSCULAR VOLUME 86 fL (79-100); MONO # 0.7 x10^3/uL (0.0-1.1); MONO % 10 % (0-9); NEUT # 4.2 x10^3uL (1.8-7.7); NEUT % 56 % (31-73); PLATELET COUNT 176 x10^3/uL (140-400); RED BLOOD COUNT 4.15 x10^6/uL (3.50-5.40); RED CELL DISTRIBUTION WIDTH 16.3 % (11.5-14.5); WHITE BLOOD COUNT 7.5 x10^3/uL (4.0-11.0)
[2021-10-02 07:19] LABS: ALBUMIN 2.5 g/dL (3.4-5.0); ALBUMIN/GLOBULIN RATIO 0.8 (1.0-1.7); CALCIUM 8.7 mg/dL (8.5-10.1); CREATININE 0.7 mg/dL (0.6-1.0); POTASSIUM 3.9 mmol/L (3.5-5.1); TOTAL BILIRUBIN 0.3 mg/dL (0.2-1.0); TOTAL PROTEIN 5.6 g/dL (6.4-8.2)
--- NOTE | 2021-10-02 07:33 | PN ---
DATE: 10/01/2021 SUBJECTIVE: The patient was seen today, met with the staff, chart reviewed and also covering for Dr. Urbina. The patient's behavior has improved slightly. She is still withdrawn, isolated, and apparently compliant with the medications and assessments. OBSERVATION: VITAL SIGNS: Temperature 97.5, blood pressure 91/61, pulse 93, respirations 20, O2 sat 94%. GENERAL: Slept about 6 hours last night. The patient's appetite is fair. CURRENT MEDICATIONS: Depakote 750 mg at night, trazodone 200 mg at night, Zoloft 75 mg at night, Clozaril 400 mg at night and 100 mg at noon. She is also on melatonin 6 mg at night and lorazepam 0.5 mg twice a day as needed. LABORATORY DATA: The patient's lab reviewed. ASSESSMENT: 1. Schizoaffective disorder, bipolar type, with acute exacerbation. 2. Anxiety disorder, unspecified. PLAN: To continue treatment. LENGTH OF STAY: [address]: [place] TID: [id number]
[2021-10-02 07:51] LABS: VAL ACID 51 mcg/mL (50-100)
[2021-10-02] MEDS: AMOXICILLIN 250 MG CAPSULE PO SCH ×3 (08:42→20:18)
[2021-10-02] MEDS: FERROUS SULFATE 325 MG TABLET. PO SCH ×2 (08:43→20:17)
[2021-10-02] MEDS: DOCUSATE SODIUM 100 MG CAPSULE PO SCH (08:43)
[2021-10-02] MEDS: LACTOBACILLUS RHAMNOSUS GG 1 CAPSULE. PO SCH ×2 (08:43→20:17)
[2021-10-02] MEDS: OMEGA-3 FATTY ACIDS/FISH OIL 1,000 MG CAPSULE. PO SCH ×2 (08:43→20:18)
[2021-10-02] MEDS: ASPIRIN ENTERIC COATED 81 MG TABLET.DR. PO SCH (08:43)
[2021-10-02] MEDS: PANTOPRAZOLE 40 MG TABLET. PO SCH (08:43)
[2021-10-02] MEDS: ASCORBIC ACID 500 MG TABLET PO SCH ×2 (08:43→20:17)
[2021-10-02] MEDS: ALBUTEROL SULFATE 8GM INHALER. INH SCH ×2 (08:47→20:17)
[2021-10-02] MEDS: POLYETHYLENE GLYCOL 3350 17 GM PACKET. PO SCH (08:47)
[2021-10-02] MEDS: SODIUM CHLORIDE 0.65% NASAL SPRAY 45ML BOTTLE. NS SCH ×2 (08:47→20:17)
[2021-10-02] MEDS: cloZAPine 100 MG TABLET PO SCH ×2 (12:00→20:17)
[2021-10-02 16:06] VITALS: BP 110/96
[2021-10-02] MEDS: SERTRALINE 50 MG TABLET. PO SCH (20:18)
[2021-10-02] MEDS: traZODone 100 MG TABLET. PO SCH (20:18)
[2021-10-02] MEDS: ATORVASTATIN CALCIUM 20 MG TABLET PO SCH (20:18)
[2021-10-02] MEDS: DIVALPROEX ER 250 MG TAB.ER.24H. PO SCH (20:18)
[2021-10-02] MEDS: MELATONIN 3 MG TABLET PO SCH (20:18)
[2021-10-03 06:23] VITALS: BP 131/76
[2021-10-03 06:33] LABS: FECAL OB PT NEGATIVE (NEG)
[2021-10-03] MEDS: OMEGA-3 FATTY ACIDS/FISH OIL 1,000 MG CAPSULE. PO SCH ×2 (09:00→09:12)
[2021-10-03] MEDS: POLYETHYLENE GLYCOL 3350 17 GM PACKET. PO SCH (09:11)
[2021-10-03] MEDS: FERROUS SULFATE 325 MG TABLET. PO SCH ×2 (09:11→20:05)
[2021-10-03] MEDS: ASPIRIN ENTERIC COATED 81 MG TABLET.DR. PO SCH (09:12)
[2021-10-03] MEDS: ASCORBIC ACID 500 MG TABLET PO SCH ×2 (09:12→20:05)
[2021-10-03] MEDS: DOCUSATE SODIUM 100 MG CAPSULE PO SCH (09:12)
[2021-10-03] MEDS: AMOXICILLIN 250 MG CAPSULE PO SCH ×3 (09:12→20:06)
[2021-10-03] MEDS: PANTOPRAZOLE 40 MG TABLET. PO SCH (09:12)
[2021-10-03] MEDS: LACTOBACILLUS RHAMNOSUS GG 1 CAPSULE. PO SCH ×2 (09:12→20:06)
[2021-10-03] MEDS: ALBUTEROL SULFATE 8GM INHALER. INH SCH ×2 (09:15→20:05)
[2021-10-03] MEDS: SODIUM CHLORIDE 0.65% NASAL SPRAY 45ML BOTTLE. NS SCH ×2 (09:15→20:05)
--- NOTE | 2021-10-03 09:29 | PN ---
DATE: 10/02/2021 SUBJECTIVE: The patient was seen today, met with the staff. Chart reviewed and covering for Dr. Urbina. Staff reports increased behavior problems, constantly calling out for help and wants to stay on the floor, but cooperative and medication compliant. OBSERVATION: VITAL SIGNS: Temperature 98.0, blood pressure 108/68, pulse 84, respirations 18, O2 sat 93%. GENERAL: Slept about 5 hours last night. The patient's appetite is fair. CURRENT MEDICATIONS: Include Depakote 250 mg at night, trazodone 200 mg at night, Zoloft 75 mg at night, melatonin 6 mg at night, Clozaril 400 mg at night and 100 mg at noon. She is also on lorazepam 0.5 mg twice a day as needed and also olanzapine 5 mg q. 2 hours p.r.n. LABORATORY DATA: The patient's lab reviewed. The patient's hemoglobin 11.7. ASSESSMENT: 1. Schizoaffective disorder, bipolar type with acute exacerbation. 2. Anxiety disorder, unspecified. PLAN: To continue with treatment. LENGTH OF STAY: [address]: [place] TID: [id number]
[2021-10-03] MEDS: cloZAPine 100 MG TABLET PO SCH ×2 (13:28→20:06)
[2021-10-03 16:14] VITALS: BP 141/72
[2021-10-03] MEDS: traZODone 100 MG TABLET. PO SCH (20:05)
[2021-10-03] MEDS: ATORVASTATIN CALCIUM 20 MG TABLET PO SCH (20:06)
[2021-10-03] MEDS: MELATONIN 3 MG TABLET PO SCH (20:06)
[2021-10-03] MEDS: SERTRALINE 50 MG TABLET. PO SCH (20:06)
[2021-10-03] MEDS: DIVALPROEX ER 250 MG TAB.ER.24H. PO SCH (20:06)
[2021-10-04 05:34] VITALS: BP 102/68
[2021-10-04] MEDS: POLYETHYLENE GLYCOL 3350 17 GM PACKET. PO SCH (09:00)
[2021-10-04] MEDS: SODIUM CHLORIDE 0.65% NASAL SPRAY 45ML BOTTLE. NS SCH ×2 (09:00→20:53)
[2021-10-04] MEDS: LACTOBACILLUS RHAMNOSUS GG 1 CAPSULE. PO SCH ×2 (10:31→20:54)
[2021-10-04] MEDS: AMOXICILLIN 250 MG CAPSULE PO SCH ×3 (10:31→20:53)
[2021-10-04] MEDS: OMEGA-3 FATTY ACIDS/FISH OIL 1,000 MG CAPSULE. PO SCH (10:31)
[2021-10-04] MEDS: DOCUSATE SODIUM 100 MG CAPSULE PO SCH (10:31)
[2021-10-04] MEDS: ASPIRIN ENTERIC COATED 81 MG TABLET.DR. PO SCH (10:31)
[2021-10-04] MEDS: ASCORBIC ACID 500 MG TABLET PO SCH ×2 (10:31→20:54)
[2021-10-04] MEDS: FERROUS SULFATE 325 MG TABLET. PO SCH ×2 (10:31→20:54)
[2021-10-04] MEDS: PANTOPRAZOLE 40 MG TABLET. PO SCH (10:31)
[2021-10-04] MEDS: ALBUTEROL SULFATE 8GM INHALER. INH SCH ×2 (10:32→20:53)
[2021-10-04] MEDS: cloZAPine 100 MG TABLET PO SCH ×2 (13:03→20:54)
[2021-10-04 16:15] VITALS: BP 123/83
--- NOTE | 2021-10-04 17:04 | PN ---
DATE: 10/03/2021 SUBJECTIVE: The patient was seen today, met with the staff. Chart reviewed and covering for Dr. Urbina. The patient continues to have behavioral problems. Most of the time, cooperative and medication compliant, continues to be loud, yelling, and moaning. OBSERVATION: VITAL SIGNS: Temperature 97.8, blood pressure 141/72, pulse 78, respirations 16, O2 sat 98%. GENERAL: Slept about 7 hours last night. The patient's appetite is fair. CURRENT MEDICATIONS: Depakote 750 mg at night, trazodone 200 mg at night, Zoloft 75 mg at night, melatonin 6 mg at night, clozapine 400 mg at night and 100 mg at noon and p.r.n. lorazepam and olanzapine. The patient is not having any side effects to medications. The patient apparently shown some improvement today. She was sitting on the floor. The patient is still having difficulty making eye contact and also having difficulty holding a conversation. ASSESSMENT: 1. Schizoaffective disorder, bipolar type with acute exacerbation. 2. Anxiety disorder, unspecified. PLAN: Continue treatment. LENGTH OF STAY: 7 days. MORTEZA/ELEAZAR/NELLY DR: MORTEZA/duncan TID: [id number]
[2021-10-04] MEDS: DIVALPROEX ER 250 MG TAB.ER.24H. PO SCH (20:54)
[2021-10-04] MEDS: MELATONIN 3 MG TABLET PO SCH (20:54)
[2021-10-04] MEDS: traZODone 100 MG TABLET. PO SCH (20:54)
[2021-10-04] MEDS: ATORVASTATIN CALCIUM 20 MG TABLET PO SCH (20:54)
[2021-10-04] MEDS: SERTRALINE 50 MG TABLET. PO SCH (20:56)
--- NOTE | 2021-10-05 04:15 | PN ---
DATE: 10/04/2021 SUBJECTIVE: The patient was seen today, met with the staff. Chart reviewed. I am covering for Dr. Urbina. Staff reports increased behavior problems, yelling, withdrawn, inappropriate behaviors, but lately, she has been more cooperative and medication compliant and she has a tendency to put herself to the floor. OBSERVATION: VITAL SIGNS: Temperature 98.4, blood pressure 102/68, pulse 96, respirations 18, O2 sat 94%. GENERAL: Slept about 7 hours last night. The patient's appetite improved. CURRENT MEDICATIONS: The patient's current medications include Depakote 750 mg at night, trazodone 200 mg at night, Zoloft 75 mg at night, melatonin 6 mg at night, clozapine 400 mg at night and 100 mg at noon, and olanzapine and lorazepam as p.r.n. The patient is not having any side effects to the medications. ASSESSMENT: 1. Schizoaffective disorder, bipolar type with acute exacerbation. 2. Anxiety disorder, unspecified. PLAN: To continue with the treatment. LENGTH OF STAY: [address]: [place] TID: [id number]
[2021-10-05 05:57] VITALS: BP 103/68
[2021-10-05] MEDS: cloZAPine 100 MG TABLET PO SCH ×2 (08:24→20:38)
[2021-10-05] MEDS: ASPIRIN ENTERIC COATED 81 MG TABLET.DR. PO SCH (08:24)
[2021-10-05] MEDS: OMEGA-3 FATTY ACIDS/FISH OIL 1,000 MG CAPSULE. PO SCH (08:24)
[2021-10-05] MEDS: ASCORBIC ACID 500 MG TABLET PO SCH ×2 (08:24→20:39)
[2021-10-05] MEDS: PANTOPRAZOLE 40 MG TABLET. PO SCH (08:24)
[2021-10-05] MEDS: LACTOBACILLUS RHAMNOSUS GG 1 CAPSULE. PO SCH ×2 (08:24→20:38)
[2021-10-05] MEDS: DOCUSATE SODIUM 100 MG CAPSULE PO SCH (08:24)
[2021-10-05] MEDS: AMOXICILLIN 250 MG CAPSULE PO SCH (08:24)
[2021-10-05] MEDS: FERROUS SULFATE 325 MG TABLET. PO SCH ×2 (08:24→20:39)
[2021-10-05] MEDS: ALBUTEROL SULFATE 8GM INHALER. INH SCH ×2 (08:25→20:38)
[2021-10-05] MEDS: SODIUM CHLORIDE 0.65% NASAL SPRAY 45ML BOTTLE. NS SCH ×2 (08:25→20:38)
[2021-10-05 16:12] VITALS: BP 134/86
[2021-10-05] MEDS: DIVALPROEX ER 250 MG TAB.ER.24H. PO SCH (20:38)
[2021-10-05] MEDS: ATORVASTATIN CALCIUM 20 MG TABLET PO SCH (20:39)
[2021-10-05] MEDS: traZODone 100 MG TABLET. PO SCH (20:39)
[2021-10-05] MEDS: MELATONIN 3 MG TABLET PO SCH (20:39)
[2021-10-05] MEDS: SERTRALINE 50 MG TABLET. PO SCH (20:39)
--- NOTE | 2021-10-06 03:37 | PN ---
DATE: 10/05/2021 SUBJECTIVE: The patient was seen today, met with the staff, chart was reviewed and covering for Dr. Urbina. Staff reports increased anxiety, withdrawn, but oriented to her surroundings. OBSERVATION: VITAL SIGNS: Temperature 98.5, blood pressure 103/68, pulse 88, respirations 20, O2 sat 93%. GENERAL: Slept about 6 hours last night. CURRENT MEDICATIONS: The patient's current medications include Depakote 750 mg at night, trazodone 200 mg at night, Zoloft 75 mg at night, melatonin 6 mg at night and clozapine 400 mg at night and 100 mg at noon and olanzapine and lorazepam as p.r.n. The patient is not exhibiting any side effects. ASSESSMENT: 1. Schizoaffective disorder, bipolar type with acute exacerbation. 2. Anxiety disorder, unspecified. PLAN: To continue treatment. LENGTH OF STAY: [address]: [place] TID: [id number]
[2021-10-06 06:07] VITALS: BP 127/75
[2021-10-06] MEDS: SODIUM CHLORIDE 0.65% NASAL SPRAY 45ML BOTTLE. NS SCH ×2 (08:55→20:51)
[2021-10-06] MEDS: FERROUS SULFATE 325 MG TABLET. PO SCH ×2 (08:55→20:54)
[2021-10-06] MEDS: ASPIRIN ENTERIC COATED 81 MG TABLET.DR. PO SCH (08:55)
[2021-10-06] MEDS: LACTOBACILLUS RHAMNOSUS GG 1 CAPSULE. PO SCH ×2 (08:55→20:52)
[2021-10-06] MEDS: OMEGA-3 FATTY ACIDS/FISH OIL 1,000 MG CAPSULE. PO SCH (08:55)
[2021-10-06] MEDS: PANTOPRAZOLE 40 MG TABLET. PO SCH (08:55)
[2021-10-06] MEDS: DOCUSATE SODIUM 100 MG CAPSULE PO SCH (08:55)
[2021-10-06] MEDS: ASCORBIC ACID 500 MG TABLET PO SCH ×2 (08:56→20:52)
[2021-10-06] MEDS: POLYETHYLENE GLYCOL 3350 17 GM PACKET. PO SCH (08:56)
[2021-10-06] MEDS: ALBUTEROL SULFATE 8GM INHALER. INH SCH ×2 (08:56→20:51)
[2021-10-06] MEDS: cloZAPine 100 MG TABLET PO SCH ×2 (12:02→20:55)
[2021-10-06 15:40] VITALS: BP 126/70
[2021-10-06] MEDS: ATORVASTATIN CALCIUM 20 MG TABLET PO SCH (20:52)
[2021-10-06] MEDS: SERTRALINE 50 MG TABLET. PO SCH (20:53)
[2021-10-06] MEDS: MELATONIN 3 MG TABLET PO SCH (20:53)
[2021-10-06] MEDS: traZODone 100 MG TABLET. PO SCH (20:54)
[2021-10-06] MEDS: DIVALPROEX ER 250 MG TAB.ER.24H. PO SCH (20:54)
[2021-10-07 06:11] VITALS: BP 127/74
[2021-10-07] MEDS: FERROUS SULFATE 325 MG TABLET. PO SCH ×2 (08:17→20:34)
[2021-10-07] MEDS: ASPIRIN ENTERIC COATED 81 MG TABLET.DR. PO SCH (08:17)
[2021-10-07] MEDS: DOCUSATE SODIUM 100 MG CAPSULE PO SCH (08:17)
[2021-10-07] MEDS: ASCORBIC ACID 500 MG TABLET PO SCH ×2 (08:17→20:33)
[2021-10-07] MEDS: PANTOPRAZOLE 40 MG TABLET. PO SCH (08:17)
[2021-10-07] MEDS: LACTOBACILLUS RHAMNOSUS GG 1 CAPSULE. PO SCH ×2 (08:17→20:33)
[2021-10-07] MEDS: OMEGA-3 FATTY ACIDS/FISH OIL 1,000 MG CAPSULE. PO SCH (08:17)
[2021-10-07] MEDS: ALBUTEROL SULFATE 8GM INHALER. INH SCH ×2 (08:18→20:32)
[2021-10-07] MEDS: SODIUM CHLORIDE 0.65% NASAL SPRAY 45ML BOTTLE. NS SCH ×2 (08:18→20:32)
[2021-10-07] MEDS: cloZAPine 100 MG TABLET PO SCH ×2 (12:12→20:33)
[2021-10-07 15:42] VITALS: BP 109/53
[2021-10-07] MEDS: MELATONIN 3 MG TABLET PO SCH (20:33)
[2021-10-07] MEDS: ATORVASTATIN CALCIUM 20 MG TABLET PO SCH (20:33)
[2021-10-07] MEDS: SERTRALINE 50 MG TABLET. PO SCH (20:33)
[2021-10-07] MEDS: DIVALPROEX ER 250 MG TAB.ER.24H. PO SCH (20:33)
[2021-10-07] MEDS: traZODone 100 MG TABLET. PO SCH (20:34)
--- NOTE | 2021-10-08 03:21 | PN ---
DATE: 10/06/2021 This is a late entry for the service 10/06/2021. SUBJECTIVE: The patient was seen today, met with the staff. Chart was reviewed and covering for Dr. Urbina. Staff reports increased anxiety, social withdrawal and no major behavior problems. OBSERVATION: VITAL SIGNS: Temperature 97.9, blood pressure 126/70, pulse 61, respirations 16, O2 sat 96%. GENERAL: The patient's sleep, appetite have improved. CURRENT MEDICATIONS: Depakote 750 mg at night, trazodone 200 mg at night, Zoloft 75 mg at night, melatonin 6 mg at night and clozapine 400 mg at night and 100 mg at noon. The patient is also on p.r.n. olanzapine and lorazepam. The patient is not exhibiting any side effects to medications. ASSESSMENT: 1. Schizoaffective disorder, bipolar type with acute exacerbation. 2. Anxiety disorder, unspecified. PLAN: To continue with the treatment. LENGTH OF STAY: [address]: [place] TID: [id number]
[2021-10-08 05:56] VITALS: BP 127/80
[2021-10-08] MEDS: LACTOBACILLUS RHAMNOSUS GG 1 CAPSULE. PO SCH ×2 (09:51→20:07)
[2021-10-08] MEDS: DOCUSATE SODIUM 100 MG CAPSULE PO SCH (09:51)
[2021-10-08] MEDS: POLYETHYLENE GLYCOL 3350 17 GM PACKET. PO SCH (09:51)
[2021-10-08] MEDS: ASPIRIN ENTERIC COATED 81 MG TABLET.DR. PO SCH (09:52)
[2021-10-08] MEDS: ASCORBIC ACID 500 MG TABLET PO SCH ×2 (09:52→20:06)
[2021-10-08] MEDS: OMEGA-3 FATTY ACIDS/FISH OIL 1,000 MG CAPSULE. PO SCH (09:52)
[2021-10-08] MEDS: PANTOPRAZOLE 40 MG TABLET. PO SCH (09:52)
[2021-10-08] MEDS: CHOLECALCIFEROL (VITAMIN D3) 50,000 UNIT CAPSULE PO SCH (09:52)
[2021-10-08] MEDS: SODIUM CHLORIDE 0.65% NASAL SPRAY 45ML BOTTLE. NS SCH ×2 (09:52→20:04)
[2021-10-08] MEDS: ALBUTEROL SULFATE 8GM INHALER. INH SCH ×2 (09:52→20:04)
[2021-10-08] MEDS: FERROUS SULFATE 325 MG TABLET. PO SCH ×2 (09:52→20:07)
[2021-10-08] MEDS: cloZAPine 100 MG TABLET PO SCH ×2 (12:00→20:05)
--- NOTE | 2021-10-08 12:46 | PN ---
DATE: 10/07/2021 SUBJECTIVE: The patient was seen today, met with the staff, chart was reviewed. I am covering for Dr. Urbina. Staff reports she is cooperative, med compliant, tends to sleep on the floor, minimal interaction. OBSERVATION: VITAL SIGNS: Temperature 96.8, blood pressure 127/74, pulse 80, respirations 20, O2 sat 98%. GENERAL: Slept about 8 hours last night. The patient's appetite is fair. CURRENT MEDICATIONS: Depakote 750 mg at night, trazodone 200 mg at night, Zoloft 75 mg at night, melatonin 6 mg at night and clozapine 400 mg at night and 100 mg at noon. She is also on p.r.n. olanzapine and lorazepam. The patient is not showing any major side effects to medications. LABORATORY DATA: The patient's lab reviewed. ASSESSMENT: 1. Schizoaffective disorder, bipolar type with acute exacerbation. 2. Anxiety disorder, unspecified. PLAN: To continue with treatment. LENGTH OF STAY: [address]SA [address]: [place] TID: [id number]
[2021-10-08 16:42] VITALS: BP 172/78
[2021-10-08] MEDS: traZODone 100 MG TABLET. PO SCH (20:04)
[2021-10-08] MEDS: ATORVASTATIN CALCIUM 20 MG TABLET PO SCH (20:06)
[2021-10-08] MEDS: SERTRALINE 50 MG TABLET. PO SCH (20:07)
[2021-10-08] MEDS: DIVALPROEX ER 250 MG TAB.ER.24H. PO SCH (20:07)
[2021-10-08] MEDS: MELATONIN 3 MG TABLET PO SCH (20:08)
--- NOTE | 2021-10-09 00:11 | PN ---
DATE: 10/08/2021 SUBJECTIVE: The patient was seen today, met with the staff. Chart was reviewed and covering for Dr. Urbina. The patient's behavior remains the same, withdrawn and isolating herself, stays on floor, limited interaction with the staff, sleeps most of the time and also apparently has issues with urinary incontinence. OBSERVATION: VITAL SIGNS: Temperature 97.2, blood pressure 127/80, pulse 87, respirations 20, O2 sat 93%. GENERAL: Slept about 9 hours last night. The patient's appetite is fair. CURRENT MEDICATIONS: Depakote 750 mg at night, trazodone 200 mg at night, Zoloft 75 mg at night, melatonin 6 mg at night and Clozaril 400 mg at night and 100 mg at noon. The patient is not exhibiting any side effects to medications. LABORATORY DATA: The patient's lab reviewed. Hemoglobin 11.7 and no other changes in her lab work. ASSESSMENT: 1. Schizoaffective disorder, bipolar type with acute exacerbation. 2. Anxiety disorder, unspecified. PLAN: To continue treatment. LENGTH OF STAY: [address]: [place] TID: [id number]
[2021-10-09 06:09] VITALS: BP 125/74
[2021-10-09 06:55] LABS: ALBUMIN 2.5 g/dL (3.4-5.0); ALBUMIN/GLOBULIN RATIO 0.8 (1.0-1.7); CALCIUM 8.8 mg/dL (8.5-10.1); CREATININE 0.7 mg/dL (0.6-1.0); POTASSIUM 3.7 mmol/L (3.5-5.1); TOTAL BILIRUBIN 0.2 mg/dL (0.2-1.0); TOTAL PROTEIN 5.6 g/dL (6.4-8.2)
[2021-10-09 07:23] LABS: BASO % 0 % (0-3); EOS % 0 % (0-3); HEMATOCRIT 37.8 % (36.0-47.0); HEMOGLOBIN 12.2 g/dL (12.0-15.5); LYMPH # 2.2 x10^3/uL (1.0-4.8); LYMPH % 35 % (24-48); MEAN CORPUSCULAR HEMOGLOBIN 28 pg (25-35); MEAN CORPUSCULAR HGB CONC 32 g/dL (31-37); MEAN CORPUSCULAR VOLUME 87 fL (79-100); MONO # 0.6 x10^3/uL (0.0-1.1); MONO % 10 % (0-9); NEUT # 3.4 x10^3uL (1.8-7.7); NEUT % 54 % (31-73); PLATELET COUNT 168 x10^3/uL (140-400); RED BLOOD COUNT 4.36 x10^6/uL (3.50-5.40); RED CELL DISTRIBUTION WIDTH 16.7 % (11.5-14.5); WHITE BLOOD COUNT 6.2 x10^3/uL (4.0-11.0)
[2021-10-09] MEDS: PANTOPRAZOLE 40 MG TABLET. PO SCH (07:30)
[2021-10-09] MEDS: DOCUSATE SODIUM 100 MG CAPSULE PO SCH (09:00)
[2021-10-09] MEDS: ALBUTEROL SULFATE 8GM INHALER. INH SCH ×2 (09:00→20:49)
[2021-10-09] MEDS: ASPIRIN ENTERIC COATED 81 MG TABLET.DR. PO SCH (09:00)
[2021-10-09] MEDS: ASCORBIC ACID 500 MG TABLET PO SCH ×2 (09:00→20:48)
[2021-10-09] MEDS: FERROUS SULFATE 325 MG TABLET. PO SCH ×2 (09:00→20:49)
[2021-10-09] MEDS: SODIUM CHLORIDE 0.65% NASAL SPRAY 45ML BOTTLE. NS SCH ×2 (09:00→20:49)
[2021-10-09] MEDS: OMEGA-3 FATTY ACIDS/FISH OIL 1,000 MG CAPSULE. PO SCH (09:00)
[2021-10-09] MEDS: LACTOBACILLUS RHAMNOSUS GG 1 CAPSULE. PO SCH ×2 (09:00→20:47)
[2021-10-09 09:31] LABS: VAL ACID 43 mcg/mL (50-100)
[2021-10-09] MEDS: cloZAPine 100 MG TABLET PO SCH ×2 (12:19→20:48)
[2021-10-09 16:05] VITALS: BP 109/73
[2021-10-09] MEDS: SERTRALINE 50 MG TABLET. PO SCH (20:48)
[2021-10-09] MEDS: DIVALPROEX ER 250 MG TAB.ER.24H. PO SCH (20:48)
[2021-10-09] MEDS: ATORVASTATIN CALCIUM 20 MG TABLET PO SCH (20:48)
[2021-10-09] MEDS: MELATONIN 3 MG TABLET PO SCH (20:48)
[2021-10-09] MEDS: traZODone 100 MG TABLET. PO SCH (20:49)
[2021-10-10 06:05] VITALS: BP 126/81
--- NOTE | 2021-10-10 06:22 | PN ---
DATE: 10/09/2021 SUBJECTIVE: The patient was seen today, met with the staff, chart reviewed, and covering for Dr. Urbina. Staff reports some improvement with her behavior. She is medication compliant, tends to sleep on the floor. Limited interaction. The patient is also incontinent of bladder and bowels at times. OBSERVATION: VITAL SIGNS: Temperature 97.4, blood pressure 109/73, pulse 83, respirations 18, O2 sat 92%. GENERAL: Slept about 8-9 hours last night. CURRENT MEDICATIONS: Depakote 750 mg at night, trazodone 200 mg at night, Zoloft 75 mg at night and Clozaril 400 mg at night and 100 mg at noon. The patient is also on melatonin 6 mg at night. The patient is not having any side effects to medications. LABORATORY DATA: The patient's lab reviewed. ASSESSMENT: 1. Schizoaffective disorder, bipolar type with acute exacerbation. 2. Anxiety disorder, unspecified. PLAN: To continue with the treatment. LENGTH OF STAY: 5-[address]: [place] TID: [id number]
[2021-10-10] MEDS: PANTOPRAZOLE 40 MG TABLET. PO SCH (08:41)
[2021-10-10] MEDS: ASCORBIC ACID 500 MG TABLET PO SCH ×2 (08:41→20:21)
[2021-10-10] MEDS: DOCUSATE SODIUM 100 MG CAPSULE PO SCH (08:42)
[2021-10-10] MEDS: ASPIRIN ENTERIC COATED 81 MG TABLET.DR. PO SCH (08:42)
[2021-10-10] MEDS: LACTOBACILLUS RHAMNOSUS GG 1 CAPSULE. PO SCH ×2 (08:42→20:21)
[2021-10-10] MEDS: OMEGA-3 FATTY ACIDS/FISH OIL 1,000 MG CAPSULE. PO SCH (08:42)
[2021-10-10] MEDS: FERROUS SULFATE 325 MG TABLET. PO SCH ×2 (08:42→20:21)
[2021-10-10] MEDS: POLYETHYLENE GLYCOL 3350 17 GM PACKET. PO SCH (09:00)
[2021-10-10] MEDS: SODIUM CHLORIDE 0.65% NASAL SPRAY 45ML BOTTLE. NS SCH ×2 (09:00→20:22)
[2021-10-10] MEDS: ALBUTEROL SULFATE 8GM INHALER. INH SCH ×2 (09:00→20:22)
[2021-10-10] MEDS: cloZAPine 100 MG TABLET PO SCH ×2 (12:21→20:21)
[2021-10-10 16:10] VITALS: BP 130/81
[2021-10-10] MEDS: SERTRALINE 50 MG TABLET. PO SCH (20:21)
[2021-10-10] MEDS: DIVALPROEX ER 250 MG TAB.ER.24H. PO SCH (20:21)
[2021-10-10] MEDS: traZODone 100 MG TABLET. PO SCH (20:21)
[2021-10-10] MEDS: ATORVASTATIN CALCIUM 20 MG TABLET PO SCH (20:22)
[2021-10-10] MEDS: MELATONIN 3 MG TABLET PO SCH (20:22)
[2021-10-11 06:21] VITALS: BP 116/80
[2021-10-11] MEDS: PANTOPRAZOLE 40 MG TABLET. PO SCH (07:30)
[2021-10-11] MEDS: ASCORBIC ACID 500 MG TABLET PO SCH ×2 (09:00→19:56)
[2021-10-11] MEDS: DOCUSATE SODIUM 100 MG CAPSULE PO SCH (09:00)
[2021-10-11] MEDS: ALBUTEROL SULFATE 8GM INHALER. INH SCH ×2 (09:00→19:54)
[2021-10-11] MEDS: OMEGA-3 FATTY ACIDS/FISH OIL 1,000 MG CAPSULE. PO SCH (09:00)
[2021-10-11] MEDS: FERROUS SULFATE 325 MG TABLET. PO SCH ×2 (09:31→19:55)
[2021-10-11] MEDS: ASPIRIN ENTERIC COATED 81 MG TABLET.DR. PO SCH (09:31)
[2021-10-11] MEDS: SODIUM CHLORIDE 0.65% NASAL SPRAY 45ML BOTTLE. NS SCH ×2 (09:32→19:58)
[2021-10-11] MEDS: LACTOBACILLUS RHAMNOSUS GG 1 CAPSULE. PO SCH ×2 (09:33→19:57)
[2021-10-11] MEDS: cloZAPine 100 MG TABLET PO SCH ×2 (12:29→19:56)
--- NOTE | 2021-10-11 13:34 | PN ---
DATE: 10/10/2021 SUBJECTIVE: The patient was seen today, met with the staff, chart reviewed and covering for Dr. Urbina. Staff reports increased social withdrawal, incontinent bowel, resistant to care, but medication compliant. OBSERVATION: VITAL SIGNS: Temperature 97.3, blood pressure 130/81, pulse 79, respirations 16, O2 sat 95%. GENERAL: Slept about 8 hours last night. CURRENT MEDICATIONS: Depakote 750 mg at night, trazodone 200 mg at night, Zoloft 75 mg at night, melatonin 6 mg at night, clozapine 400 mg at night and 100 mg at noon, lorazepam 0.5 mg b.i.d. p.r.n., olanzapine 5 mg q. 2 hours p.r.n. The patient is not having any side effects to medications. LABORATORY DATA: The patient's lab reviewed. ASSESSMENT: 1. Schizoaffective disorder, bipolar type with acute exacerbation. 2. Anxiety disorder, unspecified. PLAN: To continue with treatment. LENGTH OF STAY: Five to seven days. SHELLEY DR: [place] TID: [id number]
[2021-10-11 16:28] VITALS: BP 136/74
[2021-10-11 19:35] LABS: FECAL OB PT NEGATIVE (NEG)
[2021-10-11] MEDS: traZODone 100 MG TABLET. PO SCH (19:55)
[2021-10-11] MEDS: MELATONIN 3 MG TABLET PO SCH (19:56)
[2021-10-11] MEDS: DIVALPROEX ER 250 MG TAB.ER.24H. PO SCH (19:56)
[2021-10-11] MEDS: SERTRALINE 50 MG TABLET. PO SCH (19:57)
[2021-10-11] MEDS: ATORVASTATIN CALCIUM 20 MG TABLET PO SCH (19:57)
--- NOTE | 2021-10-12 06:17 | PN ---
DATE: 10/11/2021 SUBJECTIVE: The patient was seen today, met with the staff. Chart was reviewed and I am covering for Dr. Urbina. Staff reports continued behavior problems, social withdrawal, incontinence of bladder and bowels, stays in her room and medication compliant. OBSERVATION: VITAL SIGNS: Temperature 97.1, blood pressure 116/80, pulse 85, respirations 20, O2 sat 93%. GENERAL: Slept about 7 hours last night. The patient's appetite is fair. LABORATORY DATA: The patient's lab reviewed. ASSESSMENT: 1. Schizoaffective disorder, bipolar type with acute exacerbation. 2. Anxiety disorder, unspecified. PLAN: To continue with the treatment. LENGTH OF STAY: Five to seven days. GRISELDA DR: [place] TID: [id number]
[2021-10-12 06:21] VITALS: BP 114/75
[2021-10-12] MEDS ORDERED: DIPHENOXYLATE/ATROPINE TABLET. PO PRN (06:30)
[2021-10-12] MEDS: SODIUM CHLORIDE 0.65% NASAL SPRAY 45ML BOTTLE. NS SCH ×2 (08:40→21:12)
[2021-10-12] MEDS: FERROUS SULFATE 325 MG TABLET. PO SCH ×2 (08:40→21:12)
[2021-10-12] MEDS: LACTOBACILLUS RHAMNOSUS GG 1 CAPSULE. PO SCH ×2 (08:40→21:10)
[2021-10-12] MEDS: ALBUTEROL SULFATE 8GM INHALER. INH SCH ×2 (08:40→21:00)
[2021-10-12] MEDS: DOCUSATE SODIUM 100 MG CAPSULE PO SCH (08:40)
[2021-10-12] MEDS: OMEGA-3 FATTY ACIDS/FISH OIL 1,000 MG CAPSULE. PO SCH (08:40)
[2021-10-12] MEDS: PANTOPRAZOLE 40 MG TABLET. PO SCH (08:40)
[2021-10-12] MEDS: ASCORBIC ACID 500 MG TABLET PO SCH ×2 (08:40→21:11)
[2021-10-12] MEDS: ASPIRIN ENTERIC COATED 81 MG TABLET.DR. PO SCH (08:40)
[2021-10-12] MEDS: POLYETHYLENE GLYCOL 3350 17 GM PACKET. PO SCH (08:41)
[2021-10-12] MEDS: cloZAPine 100 MG TABLET PO SCH ×2 (12:16→21:11)
[2021-10-12 16:35] VITALS: BP 125/65
[2021-10-12] MEDS: MELATONIN 3 MG TABLET PO SCH (21:10)
[2021-10-12] MEDS: DIVALPROEX ER 250 MG TAB.ER.24H. PO SCH (21:11)
[2021-10-12] MEDS: traZODone 100 MG TABLET. PO SCH (21:11)
[2021-10-12] MEDS: ATORVASTATIN CALCIUM 20 MG TABLET PO SCH (21:11)
[2021-10-12] MEDS: SERTRALINE 50 MG TABLET. PO SCH (21:11)
--- NOTE | 2021-10-13 04:08 | PN ---
DATE: 10/12/2021 SUBJECTIVE: The patient was seen today, met with the staff. Chart was reviewed and covering for Dr. Urbina. The patient continues to have problems. I discussed the treatment plan today. The patient is feeding at least 75% of her meals, averaging about 6-1/2 hours at night. The patient at the time is cooperative, compliant with the medications. She tends to put herself on the floor. The patient is not exhibiting any physical or verbal aggression lately. The patient is planned for discharge sometime next week. OBSERVATION: VITAL SIGNS: Temperature 97.8, blood pressure 125/65, pulse 85, respirations 16, O2 sat 94%. CURRENT MEDICATIONS: Depakote 750 mg at night, trazodone 200 mg at night, Zoloft 75 mg at night, melatonin 6 mg at night, Clozaril 400 mg at night and 100 mg at noon, lorazepam 0.5 mg b.i.d. p.r.n. and olanzapine 5 mg q. 2 hours p.r.n. The patient is not showing any side effects to medications. ASSESSMENT: 1. Schizoaffective disorder, bipolar type with acute exacerbation. 2. Anxiety disorder, unspecified. PLAN: To continue treatment. LENGTH OF STAY: 5-[address]: [place] TID: [id number]
[2021-10-13 05:47] VITALS: BP 119/78
[2021-10-13] MEDS: OMEGA-3 FATTY ACIDS/FISH OIL 1,000 MG CAPSULE. PO SCH (12:11)
[2021-10-13] MEDS: ASPIRIN ENTERIC COATED 81 MG TABLET.DR. PO SCH (12:11)
[2021-10-13] MEDS: LACTOBACILLUS RHAMNOSUS GG 1 CAPSULE. PO SCH ×2 (12:11→20:45)
[2021-10-13] MEDS: ASCORBIC ACID 500 MG TABLET PO SCH ×2 (12:11→20:44)
[2021-10-13] MEDS: DOCUSATE SODIUM 100 MG CAPSULE PO SCH (12:11)
[2021-10-13] MEDS: FERROUS SULFATE 325 MG TABLET. PO SCH ×2 (12:11→20:44)
[2021-10-13] MEDS: PANTOPRAZOLE 40 MG TABLET. PO SCH (12:11)
[2021-10-13] MEDS: ALBUTEROL SULFATE 8GM INHALER. INH SCH ×2 (12:12→20:47)
[2021-10-13] MEDS: cloZAPine 100 MG TABLET PO SCH ×2 (12:12→20:44)
[2021-10-13] MEDS: SODIUM CHLORIDE 0.65% NASAL SPRAY 45ML BOTTLE. NS SCH ×2 (12:12→20:46)
[2021-10-13 15:35] VITALS: BP 104/69
[2021-10-13] MEDS: traZODone 100 MG TABLET. PO SCH (20:44)
[2021-10-13] MEDS: DIVALPROEX ER 250 MG TAB.ER.24H. PO SCH (20:44)
[2021-10-13] MEDS: MELATONIN 3 MG TABLET PO SCH (20:44)
[2021-10-13] MEDS: SERTRALINE 50 MG TABLET. PO SCH (20:45)
[2021-10-13] MEDS: ATORVASTATIN CALCIUM 20 MG TABLET PO SCH (20:45)
[2021-10-14 05:50] VITALS: BP 110/72
[2021-10-14] MEDS: ASPIRIN ENTERIC COATED 81 MG TABLET.DR. PO SCH (08:07)
[2021-10-14] MEDS: OMEGA-3 FATTY ACIDS/FISH OIL 1,000 MG CAPSULE. PO SCH (08:07)
[2021-10-14] MEDS: ASCORBIC ACID 500 MG TABLET PO SCH ×2 (08:07→20:03)
[2021-10-14] MEDS: DOCUSATE SODIUM 100 MG CAPSULE PO SCH (08:07)
[2021-10-14] MEDS: LACTOBACILLUS RHAMNOSUS GG 1 CAPSULE. PO SCH ×2 (08:07→20:03)
[2021-10-14] MEDS: SODIUM CHLORIDE 0.65% NASAL SPRAY 45ML BOTTLE. NS SCH ×2 (08:08→20:03)
[2021-10-14] MEDS: PANTOPRAZOLE 40 MG TABLET. PO SCH (08:08)
[2021-10-14] MEDS: ALBUTEROL SULFATE 8GM INHALER. INH SCH ×2 (08:08→20:03)
[2021-10-14] MEDS: POLYETHYLENE GLYCOL 3350 17 GM PACKET. PO SCH (08:10)
[2021-10-14] MEDS: FERROUS SULFATE 325 MG TABLET. PO SCH ×2 (08:10→20:03)
--- NOTE | 2021-10-14 11:02 | PN ---
DATE: 10/13/2021 SUBJECTIVE: The patient was seen today, met with the staff, chart reviewed, and also covering for Dr. Urbina. Staff reports continued behavior problems, wanting to stay on the floor, refusing breakfast. She tends to put herself on the floor, including the dining room after lunch. OBSERVATION: VITAL SIGNS: Temperature 97.6, blood pressure 104/69, pulse 89, respirations 20, O2 sat 98%. GENERAL: The patient's appetite is fair. CURRENT MEDICATIONS: Depakote 750 mg at night, trazodone 200 mg at night, Zoloft 75 mg at night, melatonin 6 mg at night, Clozaril 400 mg at night and 100 mg at noon, lorazepam 0.5 mg twice a day p.r.n., and olanzapine 5 mg q. 2 hours p.r.n. The patient is not having any side effects to medications. ASSESSMENT: 1. Schizoaffective disorder, bipolar type with an acute exacerbation. 2. Anxiety disorder, unspecified. PLAN: To continue with the treatment. LENGTH OF STAY: Five to seven days. MORTEZA/ELEAZAR/NELLY DR: [place] TID: [id number]
[2021-10-14] MEDS: cloZAPine 100 MG TABLET PO SCH ×2 (12:15→20:03)
[2021-10-14 16:10] VITALS: BP 112/72
[2021-10-14] MEDS: ATORVASTATIN CALCIUM 20 MG TABLET PO SCH (20:03)
[2021-10-14] MEDS: DIVALPROEX ER 250 MG TAB.ER.24H. PO SCH (20:03)
[2021-10-14] MEDS: SERTRALINE 50 MG TABLET. PO SCH (20:04)
[2021-10-14] MEDS: traZODone 100 MG TABLET. PO SCH (20:04)
[2021-10-14] MEDS: MELATONIN 3 MG TABLET PO SCH (20:04)
--- NOTE | 2021-10-15 02:08 | PN ---
DATE: 10/14/2021 SUBJECTIVE: The patient was seen today, met with the staff, chart reviewed. Covering for Dr. Urbina. Staff reports she continues to stay on the floor, prefers lying down on the floor, refusing breakfast. The patient difficult to redirect. The patient overall not showing any major behavior problems. OBSERVATION: VITAL SIGNS: Stable. GENERAL: Sleep increased. Appetite is fair. CURRENT MEDICATIONS: Depakote 750 mg at night, trazodone 200 mg at night, Zoloft 75 mg at night, melatonin 6 mg at night, Clozaril 400 mg at night and 100 mg at noon, lorazepam 0.5 mg twice a day p.r.n., and olanzapine 5 mg q. 2 hours p.r.n. The patient is not having any side effects to medications. LABORATORY DATA: The patient's lab reviewed. ASSESSMENT: 1. Schizoaffective disorder, bipolar type with acute exacerbation. 2. Anxiety disorder, unspecified. PLAN: Continue with the treatment. LENGTH OF STAY: Five to seven days. SHELIA DR: [place] TID: [id number]
[2021-10-15 05:57] VITALS: BP 113/72
[2021-10-15] MEDS: ASPIRIN ENTERIC COATED 81 MG TABLET.DR. PO SCH (07:53)
[2021-10-15] MEDS: ALBUTEROL SULFATE 8GM INHALER. INH SCH ×2 (07:53→20:54)
[2021-10-15] MEDS: FERROUS SULFATE 325 MG TABLET. PO SCH ×2 (07:53→20:51)
[2021-10-15] MEDS: DOCUSATE SODIUM 100 MG CAPSULE PO SCH (07:53)
[2021-10-15] MEDS: LACTOBACILLUS RHAMNOSUS GG 1 CAPSULE. PO SCH ×2 (07:53→20:51)
[2021-10-15] MEDS: SODIUM CHLORIDE 0.65% NASAL SPRAY 45ML BOTTLE. NS SCH ×2 (07:53→20:54)
[2021-10-15] MEDS: CHOLECALCIFEROL (VITAMIN D3) 50,000 UNIT CAPSULE PO SCH (07:53)
[2021-10-15] MEDS: ASCORBIC ACID 500 MG TABLET PO SCH ×2 (07:54→20:51)
[2021-10-15] MEDS: OMEGA-3 FATTY ACIDS/FISH OIL 1,000 MG CAPSULE. PO SCH (07:54)
[2021-10-15] MEDS: PANTOPRAZOLE 40 MG TABLET. PO SCH (07:54)
[2021-10-15] MEDS: cloZAPine 100 MG TABLET PO SCH ×2 (12:00→20:52)
[2021-10-15 16:05] VITALS: BP 150/82
[2021-10-15] MEDS: MELATONIN 3 MG TABLET PO SCH (20:51)
[2021-10-15] MEDS: DIVALPROEX ER 250 MG TAB.ER.24H. PO SCH (20:51)
[2021-10-15] MEDS: ATORVASTATIN CALCIUM 20 MG TABLET PO SCH (20:51)
[2021-10-15] MEDS: traZODone 100 MG TABLET. PO SCH (20:51)
[2021-10-15] MEDS: SERTRALINE 50 MG TABLET. PO SCH (20:52)
[2021-10-16] MEDS ORDERED: FERR325T14 PO (02:17)
[2021-10-16] MEDS ORDERED: DIVA250T PO (02:18)
[2021-10-16] MEDS ORDERED: MAGN296S68 PO (02:21)
[2021-10-16] MEDS ORDERED: BISA10SU4 RC (02:21)
[2021-10-16] MEDS ORDERED: LACT1CAP19 PO (02:22)
[2021-10-16] MEDS ORDERED: ASCO500C PO (02:23)
[2021-10-16] MEDS ORDERED: CHOL500021 PO (02:24)
[2021-10-16] MEDS ORDERED: DIPH1TAB PO (02:40)
[2021-10-16] MEDS ORDERED: METH114C3 TP (02:42)
--- NOTE | 2021-10-16 05:33 | PN ---
DATE: 10/15/2021 SUBJECTIVE: The patient was seen today, met with the staff. Chart was reviewed and covering for Dr. Urbina. Staff reports continued behavior problems, stays in bed most of the time and is difficult to redirect. The patient is still delusional and paranoid. OBSERVATION: VITAL SIGNS: Temperature 98.3, blood pressure 113/72, pulse 90, respirations 18, O2 sat 95%. GENERAL: Slept about 8 hours last night. CURRENT MEDICATIONS: Depakote 750 mg at night, trazodone 200 mg at night, Zoloft 75 mg at night, melatonin 6 mg at night, Clozaril 400 mg at night and 100 mg at noon, lorazepam 0.5 mg twice a day p.r.n. and olanzapine 5 mg q. 2 hours p.r.n. The patient is not having any side effects to the medications. LABORATORY DATA: Reviewed. ASSESSMENT: 1. Schizoaffective disorder, bipolar type, with acute exacerbation. 2. Anxiety disorder, unspecified. PLAN: To continue with the treatment. LENGTH OF STAY: Five to seven days. MIKEY DR: [place] TID: [id number]
[2021-10-16 05:36] VITALS: BP 106/67
[2021-10-16 06:39] LABS: BASO % 1 % (0-3); EOS % 0 % (0-3); HEMATOCRIT 37.1 % (36.0-47.0); HEMOGLOBIN 12.1 g/dL (12.0-15.5); LYMPH # 2.4 x10^3/uL (1.0-4.8); LYMPH % 42 % (24-48); MEAN CORPUSCULAR HEMOGLOBIN 28 pg (25-35); MEAN CORPUSCULAR HGB CONC 33 g/dL (31-37); MEAN CORPUSCULAR VOLUME 87 fL (79-100); MONO # 0.6 x10^3/uL (0.0-1.1); MONO % 11 % (0-9); NEUT # 2.6 x10^3uL (1.8-7.7); NEUT % 46 % (31-73); PLATELET COUNT 158 x10^3/uL (140-400); RED BLOOD COUNT 4.27 x10^6/uL (3.50-5.40); RED CELL DISTRIBUTION WIDTH 17.2 % (11.5-14.5); WHITE BLOOD COUNT 5.7 x10^3/uL (4.0-11.0)
[2021-10-16 06:48] LABS: ALBUMIN 2.5 g/dL (3.4-5.0); ALBUMIN/GLOBULIN RATIO 0.8 (1.0-1.7); CALCIUM 8.7 mg/dL (8.5-10.1); CREATININE 0.6 mg/dL (0.6-1.0); GFR 99.1; POTASSIUM 3.8 mmol/L (3.5-5.1); TOTAL BILIRUBIN 0.2 mg/dL (0.2-1.0); TOTAL PROTEIN 5.6 g/dL (6.4-8.2)
[2021-10-16] MEDS: DOCUSATE SODIUM 100 MG CAPSULE PO SCH (08:16)
[2021-10-16] MEDS: ASPIRIN ENTERIC COATED 81 MG TABLET.DR. PO SCH (08:16)
[2021-10-16] MEDS: PANTOPRAZOLE 40 MG TABLET. PO SCH (08:17)
[2021-10-16] MEDS: OMEGA-3 FATTY ACIDS/FISH OIL 1,000 MG CAPSULE. PO SCH (08:17)
[2021-10-16] MEDS: ALBUTEROL SULFATE 8GM INHALER. INH SCH (08:17)
[2021-10-16] MEDS: ASCORBIC ACID 500 MG TABLET PO SCH (08:17)
[2021-10-16] MEDS: FERROUS SULFATE 325 MG TABLET. PO SCH (08:17)
[2021-10-16] MEDS: LACTOBACILLUS RHAMNOSUS GG 1 CAPSULE. PO SCH (08:17)
[2021-10-16] MEDS: SODIUM CHLORIDE 0.65% NASAL SPRAY 45ML BOTTLE. NS SCH (08:20)
[2021-10-16] MEDS: POLYETHYLENE GLYCOL 3350 17 GM PACKET. PO SCH (08:20)
--- NOTE | 2021-10-16 20:52 | DS ---
DATE OF DISCHARGE: 10/16/2021 FINAL DIAGNOSES: 1. Schizoaffective disorder, bipolar type, mixed, with acute exacerbation and psychotic features. 2. Anxiety disorder, unspecified. 3. Impulse control disorder, unspecified. 4. Mild cognitive disorder. REASON FOR ADMISSION: This 71-year-old female was admitted from [facility] at the request of Dr. Silver Grande, her primary care physician on account of an acute exacerbation of her schizoaffective disorder, bipolar type with acute exacerbation. The patient exhibiting bizarre behaviors, dancing in the lobby, putting herself on the floor, screaming. She also voiced suicidal ideation with a plan to walk in front of a car. She was also physical towards one of the staff. The patient apparently failed outpatient treatment. HISTORY OF PRESENT ILLNESS: The patient has a long history of schizoaffective disorder, bipolar type. She has been at the [facility] for some time and lately she is getting more and more psychotic, aggressive behaviors, disruptive behaviors. The patient at the time of admission did not have any suicidal or homicidal thoughts. HOSPITAL COURSE: The patient had routine lab work, physical exam. The patient's labs were within normal range except for glucose level increased. The patient's hemoglobin A1c was 6.3. The patient's urinalysis was within normal range. The patient was encouraged to attend all the activities including individual therapy, group therapy, and activity therapy. The patient's medications included Depakote 750 mg at night, trazodone 200 mg at night, Zoloft 75 mg at night, melatonin 6 mg at night, Clozaril 400 mg at night and repeat 100 mg at noon, lorazepam 0.5 mg b.i.d. p.r.n. and also olanzapine 5 mg q. 2 hours p.r.n. The patient did not have any side effects to medications. The patient's behavior improved and the patient was accepted at [facility]. The patient at the time of discharge medically stable. She was not expressing any suicidal or homicidal thoughts. No overt psychotic symptoms. MORTEZA/EKAdriana/ROHAN DR: MORTEZA/duncan TID: [id number]
== END 2021-10-16 10:32 | DRG 885 ==
LOC: ER 19:04 → EDBD 19:04 → ER 22:16 → GEROPSY 23:01
PROVIDERS: ADMIT Psychiatry & Neurology Psychiatry; ATTEND Psychiatry & Neurology Psychiatry
DX: F25.0 Schizoaffective disorder, bipolar type (principal); F01.51 Vascular dementia, unspecified severity, with behavioral disturbance; N39.0 Urinary tract infection, site not specified; R45.851 Suicidal ideations; E10.9 Type 1 diabetes mellitus without complications; E78.5 Hyperlipidemia, unspecified; F10.10 Alcohol abuse, uncomplicated; F41.9 Anxiety disorder, unspecified; F63.9 Impulse disorder, unspecified; K59.00 Constipation, unspecified; R32 Unspecified urinary incontinence; Z79.4 Long term (current) use of insulin; Z79.899 Other long term (current) drug therapy; Z88.8 Allergy status to other drugs, medicaments and biological substances
CPT/HCPCS: 36415; 70450; 71045; 80053; 80061; 80164; 80307; 80329; 81001; 82140; 82274; 82306; 83036; 83540; 83550; 83735; 84436; 84443; 84480; 85025; 86592; 87077; 87086; 87186; 87428; 93005; G0480; U0003; 97116; 97530; 99285-25